=== PATIENT | male | born 1935 | race Caucasian/White ===

== ENCOUNTER 2020-01-19 09:57 | Outpatient (CLI) | payer MEDICARE ==
[2020-01-19 15:24] LABS: BASOPHILS # (AUTO) 0.1 10^3/uL (0.0-0.1); BASOPHILS % (AUTO) 0.6 %; EOSINOPHILS # (AUTO) 0.2 10^3/uL (0.0-0.7); EOSINOPHILS % (AUTO) 2.8 %; HGB - HEMOGLOBIN 13.6 g/dL (14.0-18.0); LYMPHOCYTES # (AUTO) 2.6 10^3/uL (1.5-3.5); LYMPHOCYTES % (AUTO) 33.5 %; MEAN CORPUSCULAR HEMOGLOBIN 30.6 pg (27.0-31.0); MEAN CORPUSCULAR HGB CONC 32.6 g/dL (32.0-36.0); MEAN CORPUSCULAR VOLUME 93.7 fL (80.0-94.0); MEAN PLATELET VOLUME 11.2 fL (7.4-11.4); MONOCYTES # (AUTO) 0.6 10^3/uL (0.0-1.0); MONOCYTES % (AUTO) 7.1 %; NEUTROPHILS # (AUTO) 4.4 10^3/uL (1.5-6.6); NEUTROPHILS % (AUTO) 55.5 %; PLT - PLATELET COUNT 206 10^3/uL (130-450); RED BLOOD COUNT 4.45 10^6/uL (4.70-6.10); RED CELL DISTRIBUTION WIDTH 14.7 % (12.0-15.0); WHITE BLOOD COUNT 7.9 x10^3/uL (4.8-10.8)
[2020-01-19 15:37] LABS: ALBUMIN 3.8 g/dL (3.2-5.5); ALBUMIN/GLOBULIN RATIO 1.1 (1.0-2.2); ALKALINE PHOSPHATASE 87 IU/L (42-121); ALT ALANINE AMINOTRANSFERASE 47 IU/L (10-60); AST ASPARTATE AMINOTRANSFERASE 35 IU/L (10-42); BILIRUBIN,TOTAL 0.9 mg/dL (0.2-1.0); BUN - BLOOD UREA NITROGEN 22 mg/dL (6-20); CALCIUM 9.4 mg/dL (8.5-10.3); CARBON DIOXIDE - CO2 28 mmol/L (21-32); CHLORIDE 105 mmol/L (101-111); CHOL/HDL RATIO 4.6 (<5.0); CHOLESTEROL 166 mg/dL; CREATININE 1.1 mg/dL (0.6-1.2); GLUCOSE 107 mg/dL (70-100); HDL CHOLESTEROL 36 mg/dL; LDL CHOLESTEROL,CALCULATED 105 mg/dL; LDL/HDL RATIO 2.9 (<3.6); SODIUM 138 mmol/L (135-145); TOTAL PROTEIN 7.2 g/dL (6.7-8.2); VLDL CHOLESTEROL 25 mg/dL
== END 2020-01-19 09:58 | disposition home or self-care (01) ==
LOC: LAB.S 09:57
PROVIDERS: ATTEND Registered Nurse
DX: R73.01 Impaired fasting glucose (principal); I10 Essential (primary) hypertension; D64.9 Anemia, unspecified; E78.5 Hyperlipidemia, unspecified; M10.9 Gout, unspecified
CPT/HCPCS: 36415; 80053; 80061; 83721; 84153; 84443; 85025

== ENCOUNTER 2020-10-31 10:02 | Outpatient (CLI) | payer MEDICARE ==
[2020-10-31 14:38] LABS: BASOPHILS # (AUTO) 0.1 10^3/uL (0.0-0.1); BASOPHILS % (AUTO) 0.6 %; EOSINOPHILS # (AUTO) 0.2 10^3/uL (0.0-0.7); EOSINOPHILS % (AUTO) 2.7 %; HCT - HEMATOCRIT 42.5 % (42.0-52.0); LYMPHOCYTES # (AUTO) 2.9 10^3/uL (1.5-3.5); LYMPHOCYTES % (AUTO) 35.5 %; MEAN CORPUSCULAR HEMOGLOBIN 31.1 pg (27.0-31.0); MEAN CORPUSCULAR HGB CONC 32.9 g/dL (32.0-36.0); MEAN CORPUSCULAR VOLUME 94.4 fL (80.0-94.0); MEAN PLATELET VOLUME 11.5 fL (7.4-11.4); MONOCYTES # (AUTO) 0.7 10^3/uL (0.0-1.0); NEUTROPHILS # (AUTO) 4.3 10^3/uL (1.5-6.6); NEUTROPHILS % (AUTO) 52.7 %; PLT - PLATELET COUNT 190 10^3/uL (130-450); WHITE BLOOD COUNT 8.2 x10^3/uL (4.8-10.8)
[2020-10-31 14:54] LABS: ALBUMIN 3.8 g/dL (3.2-5.5); ALBUMIN/GLOBULIN RATIO 1.2 (1.0-2.2); ALKALINE PHOSPHATASE 82 IU/L (42-121); ALT ALANINE AMINOTRANSFERASE 40 IU/L (10-60); AST ASPARTATE AMINOTRANSFERASE 35 IU/L (10-42); BILIRUBIN,TOTAL 0.9 mg/dL (0.2-1.0); BUN - BLOOD UREA NITROGEN 21 mg/dL (6-20); CARBON DIOXIDE - CO2 27 mmol/L (21-32); CHLORIDE 101 mmol/L (101-111); CHOL/HDL RATIO 4.2 (<5.0); CHOLESTEROL 186 mg/dL; CREATININE 1.3 mg/dL (0.6-1.2); GFR - MDRD 53 (>89); GLUCOSE 103 mg/dL (70-100); HDL CHOLESTEROL 44 mg/dL; LDL CHOLESTEROL,CALCULATED 109 mg/dL; LDL/HDL RATIO 2.5 (<3.6); POTASSIUM 4.1 mmol/L (3.5-5.0); SODIUM 137 mmol/L (135-145); TRIGLYCERIDES 163 mg/dL; VLDL CHOLESTEROL 33 mg/dL
[2020-10-31 15:04] LABS: THYROID STIMULATING HORMONE 1.7 uIU/mL (0.34-5.60)
== END 2020-10-31 10:03 | disposition home or self-care (01) ==
LOC: LAB.S 10:02
PROVIDERS: ATTEND Registered Nurse
DX: R79.89 Other specified abnormal findings of blood chemistry (principal); R73.01 Impaired fasting glucose; I10 Essential (primary) hypertension; D64.9 Anemia, unspecified; E78.5 Hyperlipidemia, unspecified; E88.81 Metabolic syndrome and other insulin resistance
CPT/HCPCS: 36415; 80053; 80061; 83721; 84443; 85025

== ENCOUNTER 2024-10-06 09:44 | Inpatient (IN) ==
[2024-10-06 10:41] LABS: BASOPHILS # (AUTO) 0.2 10^3/uL (0.0-0.1); BASOPHILS % (AUTO) 0.6 %; EOSINOPHILS # (AUTO) 2.8 10^3/uL (0.0-0.7); EOSINOPHILS % (AUTO) 10.9 %; HCT - HEMATOCRIT 40.7 % (42.0-52.0); HGB - HEMOGLOBIN 14.6 g/dL (14.0-18.0); LYMPHOCYTES # (AUTO) 3.3 10^3/uL (1.5-3.5); LYMPHOCYTES % (AUTO) 12.9 %; MEAN CORPUSCULAR HEMOGLOBIN 31.5 pg (27.0-31.0); MEAN CORPUSCULAR HGB CONC 35.9 g/dL (32.0-36.0); MEAN CORPUSCULAR VOLUME 87.7 fL (80.0-94.0); MEAN PLATELET VOLUME 10.2 fL (7.4-11.4); MONOCYTES # (AUTO) 1.6 10^3/uL (0.0-1.0); MONOCYTES % (AUTO) 6.3 %; NEUTROPHILS # (AUTO) 17.5 10^3/uL (1.5-6.6); NEUTROPHILS % (AUTO) 68.1 %; PLT - PLATELET COUNT 290 10^3/uL (130-450); RED BLOOD COUNT 4.64 10^6/uL (4.70-6.10); RED CELL DISTRIBUTION WIDTH 13.2 % (12.0-15.0); WHITE BLOOD COUNT 25.7 x10^3/uL (4.8-10.8)
[2024-10-06 10:44] LABS: SLIDE REVIEW? Indicated
[2024-10-06 11:01] LABS: PLATELET ESTIMATE, MANUAL NORMAL (130-450,000) (NORMAL); PLATELET MORPHOLOGY NORMAL APPEARANCE (NORMAL); RBC MORPHOLOGY (MULTIPLE) NORMAL APPEARANCE (NORMAL)
[2024-10-06 11:05] LABS: ALBUMIN 3.8 g/dL (3.2-5.5); ALBUMIN/GLOBULIN RATIO 1.5 (1.0-2.2); BILIRUBIN,TOTAL 0.7 mg/dL (0.2-1.0); CALCIUM 9.8 mg/dL (8.5-10.3); CREATININE 1.5 mg/dL (0.6-1.3); POTASSIUM 4.7 mmol/L (3.5-4.5); TOTAL PROTEIN 6.3 g/dL (6.4-8.9)
--- NOTE | 2024-10-06 11:41 | ED Physician Documentation ---
History of Present Illness Stated complaint Stated Complaint: SOA,CONFUSION Chief complaint Chief Complaint: Neuro Additonal information Additional information: 89-year-old male with history of hypertension, GERD, gout, type 2 diabetes presents emergency department with his son For concerns of altered mental status that has been going on for two days now. Son says that his father is normally very sharp in with it there is never been any altered mental status or confusion in the past. Last couple days son has been noting that his father has been repeating questions or having a hard time answering really simple questions that he normally does not have a hard time answering. He says that his father normally manages his own medications without any difficulty so he is unsure of his past medical history. Patient is alert and oriented to self and situation he is unable to tell me the president's name, the year, or what city we are in. Son says this is very abnormal for her father. He has had no recent falls or head injuries that the son is aware of although as son reports his father is usually very independent so he is not with him 10/03. Patient is experiencing some nausea with some abdominal pain and patient does report that he does feel quite confused and altered. Son reports that patient is normally very gaggy and coughs a lot with high amount of phlegm but over the last couple days there has been an excessive amount of phlegm and a lot of coughing with nausea and vomiting. [place] Coma Scale Assess Eye opening: Spontaneous Verbal response: Confused Motor response: Obeys Commands Total score: 14 Meds/Allgy Home Medications Ambulatory Orders Medication Instructions Recorded Confirmed allopurinol 100 mg tablet 100 mg PO DAILY 03/11/15 04/19/15 atenolol 100 mg tablet 100 mg PO DAILY 03/11/15 04/19/15 atorvastatin 20 mg tablet 20 mg PO DAILY 03/11/15 04/19/15 cholecalciferol (vitamin D3) 50 2,000 units PO BID 03/11/15 04/19/15 mcg (2,000 unit) capsule (Vitamin D3) metformin 500 mg tablet 500 mg PO DAILY 03/11/15 04/19/15 multivitamin 1 tab PO DAILY 03/11/15 04/19/15 oxycodone-acetaminophen 5 mg-325 1 tab PO DAILY 03/11/15 04/19/15 mg tablet (Percocet) aspirin,buffered (calcium 325 mg PO DAILY 04/06/15 04/19/15 carbonate-magnesium) 325 mg tablet flaxseed oil 1,000 mg capsule 1 tab PO DAILY 04/06/15 04/19/15 omeprazole 20 mg capsule,delayed 20 mg PO DAILY 04/06/15 04/19/15 release Allergies Allergies Allergy/AdvReac Type Severity Reaction Status Date / Time penicillin * (penicillin) AdvReac Severe Anaphylaxis Verified 10/06/24 10:15 naproxen sodium * (From AdvReac Intermediate Unknown Verified 10/06/24 10:15 Aleve) PFSH Active Problems All Active Problems (Updated 10/06/24 @ 21:05 by Pippa Delgado DNP) Pleural effusion (Acute) Cancer, metastatic to lung (Acute) Acute urinary retention (Acute) Confusion (Acute) Altered mental status (Acute) Acute hyponatremia (Acute) Social History Social History Smoking Status: Former smoker If you are a former smoker, when did you quit? (Date/Year): 1984 Number of Years Smoked: 26 How many cigarettes a day do you smoke? (20 cigarettes=1 Pk): 40 Do you dip or chew tobacco?: No Relationship: Home Mobility Equipment: Wheeled walker Do you feel safe in your home environment?: Yes Suffered physical, verbal, emotional, or financial abuse?: No History of Abuse: No Exam Constitutional normal general appearance, no apparent distress, average body habitus, limitations noted (altered mental status) and alert HENMT normocephalic and head/scalp atraumatic Eyes PERRL, EOMs intact bilaterally and no nystagmus Neck/C-Spine visual inspection normal Chest inspection of chest normal Respiratory breath sounds equal bilaterally, abnormal respiratory effort (increased work of breathing ) and wheezing noted (scattered wheezes) Cardiovascular normal heart rate noted and regular rhythm noted Gastrointestinal abdomen normal to inspection, abdomen soft to palpation, nontender to palpation and no masses Extremities normal to inspection Neurology no movement abnormality noted, no focal motor deficit noted, speech normal, coordination normal, no pronator drift noted and GCS calculation - Eye opening: Spontaneous Verbal response: Confused Motor response: Obeys Commands [place] Coma Scale total score: 14 Psychiatry orientation abnormal (disoriented to place) and (disoriented to time) Skin skin color normal and no rash Results Vitals Vitals: Vital Signs - 24 hr 10/06/24 10:10 10/06/24 11:47 10/06/24 13:08 Temperature 36.0 C L Temperature Source Temporal Artery Scan Pulse Rate 65 83 88 Respiratory Rate 20 18 17 Blood Pressure 127/91 H 171/74 H 160/78 H O2 Saturation 96 93 93 O2 Source Room air Room air Room air Pain Intensity 4 8 10/06/24 15:00 10/06/24 17:00 10/06/24 19:29 Temperature 36.1 C L Temperature Source Tympanic Pulse Rate 87 88 89 Respiratory Rate 18 18 22 Blood Pressure 166/82 H 168/88 H 125/62 O2 Saturation 95 96 96 O2 Source Room air Room air Room air Pain Intensity 0 0 0 Oxygen O2 Source Room air EKG (time done) 1225: EKG releavant findings:: EKG personally interpreted by author of this note. Relevant findings are: Rate: Rate (enter#) (84) Rhythm: NSR [place]: Normal Intervals: Other (Short [place] interval) QRS: QRS normal Ischemia: Normal ST segments Other comments: Other comments (Left ventricular hypertrophy, left atrial enlargement) Computer interpretation: Agree with computer Labs Labs: Laboratory Tests 10/06/24 10/06/24 10/06/24 10:31 13:05 14:06 WBC 25.7 H RBC 4.64 L Hgb 14.6 Hct 40.7 L MCV 87.7 MCH 31.5 H MCHC 35.9 RDW 13.2 Plt Count 290 MPV 10.2 Neut # (Auto) 17.5 H Lymph # (Auto) 3.3 [place] # (Auto) 1.6 H Eos # (Auto) 2.8 H Baso # (Auto) 0.2 H Absolute Nucleated RBC 0.00 Nucleated RBC % 0.0 Manual Slide Review Indicated WBC Morphology Platelet Estimate NORMAL (130-450,000) Platelet Morphology NORMAL APPEARANCE RBC Morph Micro Appear NORMAL APPEARANCE Sodium 120 L* 121 L Potassium 4.7 H Chloride 87 L Carbon Dioxide 23 Anion Gap 10.0 BUN 36 H Creatinine 1.5 H Estimated GFR (MDRD) 44 L Glucose 112 H Calcium 9.8 Total Bilirubin 0.7 AST 19 ALT 30 Alkaline Phosphatase 107 Total Protein 6.3 L Albumin 3.8 Globulin 2.5 Albumin/Globulin Ratio 1.5 Lipase 15 Procalcitonin Immunoas 0.43 Urine Color YELLOW Urine Clarity CLEAR Urine pH 6.0 Ur Specific [place] 1.020 Urine Protein TRACE Urine Glucose (UA) NEGATIVE Urine Ketones NEGATIVE Urine Occult Blood TRACE-LYSE Urine Nitrite NEGATIVE Urine Bilirubin NEGATIVE Urine Urobilinogen 0.2 (NORMAL) Ur Leukocyte Esterase NEGATIVE Ur Microscopic Review NOT INDICATED Urine Culture Comments NOT INDICATED Urine Sodium 31.4 10/06/24 10/06/24 16:27 19:58 WBC RBC Hgb Hct MCV MCH MCHC RDW Plt Count MPV Neut # (Auto) Lymph # (Auto) [place] # (Auto) Eos # (Auto) Baso # (Auto) Absolute Nucleated RBC Nucleated RBC % Manual Slide Review WBC Morphology Platelet Estimate Platelet Morphology RBC Morph Micro Appear Sodium 124 L 126 L Potassium Chloride Carbon Dioxide Anion Gap BUN Creatinine Estimated GFR (MDRD) Glucose Calcium Total Bilirubin AST ALT Alkaline Phosphatase Total Protein Albumin Globulin Albumin/Globulin Ratio Lipase Procalcitonin Immunoas Urine Color Urine Clarity Urine pH Ur Specific [place] Urine Protein Urine Glucose (UA) Urine Ketones Urine Occult Blood Urine Nitrite Urine Bilirubin Urine Urobilinogen Ur Leukocyte Esterase Ur Microscopic Review Urine Culture Comments Urine Sodium Rads (name of study) Head CT without: Relevant Findings:: Final report received and EMP independent interpretation of test Interpretation: IMPRESSION: No acute intracranial pathology. CT abdomen pelvis with out: Relevant Findings:: Final report received and EMP independent interpretation of test Interpretation: IMPRESSION: 1. There is a likely malignant process in the chest, involving the right hemithorax and mediastinum. Please refer to a separate chest CT report. 2. Findings include a large right pleural effusion and a right basilar masslike density which may potentially represent malignancy or atelectasis or consolidation. There is also hilar mass. 3. No acute findings identified in the abdomen and pelvis. 4. No evidence by noncontrast CT of metastatic disease in the abdomen and pelvis. 5. Prostate implant seeds with a diminutive prostate. Comment: Consider repeat imaging with contrast, on a nonemergent basis, further workup probable malignancy. CT chest without: Relevant Findings:: Final report received and EMP independent interpretation of test Interpretation: IMPRESSION: 1. Findings are highly suspicious for malignancy in the chest. This involves the right hemithorax and right hilar region and also involves suspicious mediastinal lymph nodes. 2. Also present is a large multilobulated pleural effusion, likely malignant. 3. Masslike density in the right lung base may represent neoplasm or atelectasis or consolidation. Comment: Consider potential thoracentesis followed by repeat chest CT with contrast. PD Medical Decision Making ED course Complexity details: reviewed old records, reviewed results, re-evaluated patient, considered differential, d/w patient and d/w family ED course: 89-year-old male presents emergency department for altered mental status and confusion. Differentials included but not limited to urinary tract infection, intracranial abnormality, hyponatremia, new onset dementia. Head CT was complete for further evaluation and does not reveal any acute intracranial hemorrhages or abnormalities. Labs completed for further evaluation patient appears to be quite hyponatremic NA 120. No history of hyponatremia in the past. CBC also reveals significant leukocytosis, WBC 25.7 mild hyperkalemia, 4.7 BUN elevated at 36, creatinine 1.5, GFR 44. Patient had quite a bit of chest congestion with rhonchi throughout bilateral lobes so chest CT without was complete for further evaluation and reveals highly suspicious for malignancy in the chest involving the right hemothorax and right hilar region also involving suspicious mediastinal lymph nodes. There is a large multilobulated pleural effusion that is likely malignant. There is also a masslike density in the right lung base which may represent neoplasm versus atelectasis or consolidation. Abdomen pelvis also complete which does not show any acute findings of the abdomen or pelvis. There is some prostate implanted seeds in the diminutive prostate patient does have a history of prostate cancer. Patient lives with his son who originally said that he does not believe that father would want any sort of intervention for his lung cancer and was originally fine with keeping him here at our hospital to help with correcting sodium levels and said that he had a high suspicion that once his father was mentating better they would likely transition patient to hospice. Patient has expressed multiple times that he never wants to in the hospital and would like to avoid hospitals at all cost. Patient's other son comes and says that he thinks that an oncology consult would be beneficial and helpful to help them navigate and make decisions on to whether they will pursue treatment or not for the father. Our hospitalist unfortunately believes that patient needs higher level of care g iven his hyponatremia we have no ICU beds available at our hospital and because of his new likely malignant lung cancer they believe that he would benefit from hospitalization elsewhere if they are not willing to pursue comfort measures only at this time aside from helping his sodium levels. Patient was given a total of 3 boluses of 100 mL 3% hypertonic normal saline. 70 level was checked frequently here in the emergency department and it went from 128 eventually to 126 over a 11-hour period. Patient unfortunately is more altered and more confused he has been given multiple doses of olanzapine Without any significant improvement of symptoms unfortunately patient ended up needing soft restraints. Because family is wanting to pursue an oncology evaluation we will need to pursue transferring patient elsewhere and so far patient has been rejected by [facility], [facility], all the [facility], Due to capacity. Will board patient here overnight until we can further pursue hospitalization elsewhere. Hernandez catheter was placed as patient was having acute urinary retention unfortunately after multiple attempts with the ER staff urology, Dr. Deven Alba was notified to come in and place a 14 [place] indwelling Hernandez catheter for acute urinary retention. Report given to oncoming physician who will further manage the patient as we work on transferring him to an outside hospital. Discharge Plan Discharge Patient Disposition: 02 Transfer Acute Care Hosp Condition: Fair Clinical Impression: Acute hyponatremia, Altered mental status, Confusion, Acute urinary retention, Cancer, metastatic to lung, Pleural effusion Stand Alone Forms: PCP List
[2024-10-06] MEDS: ONDANSETRON 4 MG/2 ML VIAL IVP STA (12:11)
[2024-10-06] MEDS: SODIUM CHLORIDE 3% HYPERTONIC 100 ML IV SCH ×3 (12:11→17:41)
[2024-10-06 13:13] LABS: BILIRUBIN,URINE NEGATIVE (NEGATIVE); GLUCOSE, URINE (UA) NEGATIVE (NEGATIVE); KETONES,URINE (UA) NEGATIVE (NEGATIVE); LEUKOCYTE ESTERASE, URINE NEGATIVE (NEGATIVE); NITRITE,URINE NEGATIVE (NEGATIVE); OCCULT BLOOD,URINE TRACE-LYSE (NEGATIVE); PROTEIN,URINE TRACE mg/dL (NEGATIVE); UROBILINOGEN,URINE 0.2 (NORMAL) E.U./dL (NORMAL)
[2024-10-06 13:15] LABS: CLARITY,URINE CLEAR (CLEAR)
--- NOTE | 2024-10-06 13:18 | CT Report ---
PROCEDURE: CT Abdomen/Pelvis WO INDICATIONS: abd [ain, nausea vomitting TECHNIQUE: A CT scan of the abdomen and pelvis was performed without the use of intravenous contrast. Images we re recorded and evaluated at appropriate window settings. Reformats: coronal and sagittal. For radiat ion dose reduction, the following was used: automated exposure control, adjustment of mA and/or kV ac cording to patient size. COMPARISON: CT chest without contrast from the same date. FINDINGS: Image quality: Diagnostic. Lower chest: When reviewing in conjunction with the CT chest, there is a right infrahilar mass or mal ignant adenopathy with associated pathologically enlarged right hilar adenopathy. In the lung base, t here is either dense atelectasis versus consolidation or basilar lung mass. There is a moderate multi loculated right pleural effusion. The left lung base is clear. Heart size is within normal limits.. Liver: No contour-deforming mass. Mild hepatomegaly. Gallbladder: Multiple tiny gallstones. Biliary tree: No intrahepatic or extrahepatic dilation, accounting for age. Spleen: No splenomegaly. Pancreas: No pancreatic ductal dilation. Adrenals: No adrenal nodule. Kidneys and ureters: No hydronephrosis. No contour-deforming mass. Stomach, bowel and peritoneum: No gastric or small bowel dilation. No abnormal wall thickening. No pa thologic free fluid. Diverticulosis without evidence of diverticulitis. Lymph nodes: No central or retroperitoneal adenopathy. Vessels: No infrarenal aortic aneurysm. Reproductive organs: Prostate implant seeds. Prostate is very small.. Bladder: Bladder wall thickness is normal, accounting for underdistention. No calcified bladder stone s. Pelvic lymph nodes: No adenopathy by size criteria. Bones: No aggressive osseous abnormality. Other: No significant ventral or inguinal hernia. IMPRESSION: 1. There is a likely malignant process in the chest, involving the right hemithorax and mediastinum. Please refer to a separate chest CT report. 2. Findings include a large right pleural effusion and a right basilar masslike density which may pot entially represent malignancy or atelectasis or consolidation. There is also hilar mass. 3. No acute findings identified in the abdomen and pelvis. 4. No evidence by noncontrast CT of metastatic disease in the abdomen and pelvis. 5. Prostate implant seeds with a diminutive prostate. Comment: Consider repeat imaging with contrast, on a nonemergent basis, further workup probable malig jada. Reviewed by: Rivera Haynes MD on 10/06/2024 1:16 PM PST Approved by: Rivera Haynes MD on 10/06/2024 1:16 PM PST Station ID: [id number]
--- NOTE | 2024-10-06 13:22 | CT Report ---
PROCEDURE: CT Chest WO INDICATIONS: cough, congestion TECHNIQUE: A CT scan of the chest was performed. Intravenous contrast media was not administered. Images were re corded and evaluated at appropriate window settings. Reformats: axial MIP of the chest, coronal and s agittal. For radiation dose reduction, the following was used: automated exposure control, adjustment of mA and/or kV according to patient size. COMPARISON: CT abdomen and pelvis from today. FINDINGS: Image quality: Diagnostic. Chest wall and lower neck: No thyroid nodule which requires sonographic follow up. No axillary or sup raclavicular adenopathy by size. Lungs and pleura: There is a large multiloculated right pleural effusion, potentially representing a malignant effusion. There is no contralateral mediastinal shift. There is right hilar/infrahilar mass or metastatic adenopathy. At least part of this process is enlarged lymph nodes. There is a masslike density in the right lung base which may either represent atelectasis or consolidation or lung mass. The left lung is clear. Mediastinum: Heart size is normal. No pericardial effusion. No large vessel abnormality. A right para tracheal lymph node is somewhat enlarged. There is subcarinal adenopathy. There is right hilar adenop athy and right infrahilar adenopathy or lung mass. Bones: No aggressive osseous abnormality. Upper Abdomen: Unremarkable. IMPRESSION: 1. Findings are highly suspicious for malignancy in the chest. This involves the right hemithorax and right hilar region and also involves suspicious mediastinal lymph nodes. 2. Also present is a large multilobulated pleural effusion, likely malignant. 3. Masslike density in the right lung base may represent neoplasm or atelectasis or consolidation. Comment: Consider potential thoracentesis followed by repeat chest CT with contrast. Reviewed by: Rivera Haynes MD on 10/06/2024 1:20 PM PST Approved by: Rivera Haynes MD on 10/06/2024 1:20 PM PST Station ID: [id number]
--- NOTE | 2024-10-06 13:22 | CT Report ---
PROCEDURE: CT Head WO INDICATIONS: AMS TECHNIQUE: Noncontrast 4.5 mm thick angled axial sections acquired from the foramen magnum to the vertex. For r adiation dose reduction, the following was used: automated exposure control, adjustment of mA and/or kV according to patient size. COMPARISON: None. FINDINGS: Image quality: Excellent. CSF spaces: Basal cisterns are patent. No extra-axial fluid collections. Ventricles are normal in size and shape. Brain: No midline shift. No intracranial masses or hemorrhage. Reddy-white matter interface is norm al. Intracranial carotid calcifications. Age-related volume loss and small vessel ischemic change. Skull and face: Calvarium and visualized facial bones are intact, without suspicious lesions. Sinuses: Visualized sinuses and mastoids are clear. IMPRESSION: No acute intracranial pathology. Reviewed by: Rivera Haynes MD on 10/06/2024 1:21 PM PST Approved by: Rivera Haynes MD on 10/06/2024 1:21 PM [facility] Station ID: [id number]
[2024-10-06] MEDS: OLANZapine ODT 5 MG TABLET TL STA ×4 (13:57→21:08)
[2024-10-06 14:33] LABS: PROCALCITONIN 0.43 ng/mL (<0.5)
[2024-10-06] MEDS ORDERED: SODIUM CHLORIDE 3% HYPERTONIC 0 ML IV SCH (18:00)
[2024-10-06] MEDS ORDERED: LIDOCAINE 2% URO-JET 5 ML SYRINGE UR ONE (18:04)
[2024-10-06] MEDS: LIDOCAINE 2% URO-JET 5 ML SYRINGE UR STA ×2 (18:26→18:49)
[2024-10-06] MEDS: LORazepam 2 MG/ML VIAL IVP STA (18:48)
--- NOTE | 2024-10-06 19:18 | CONSULTATION NOTE ---
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 Tenderness to palpation of suprapubic area Attempted catheter placement by ER multiple times failed. Urology consulted to aid with catheter placement At time of evaluation patient was lying in bed in the ER, arousable but not oriented PFSH Active Problems All Active Problems (Updated 10/06/24 @ 21:05 by Pippa Delgado DNP) Pleural effusion (Acute) Cancer, metastatic to lung (Acute) Acute urinary retention (Acute) Confusion (Acute) Altered mental status (Acute) Acute hyponatremia (Acute) Social History Social History Smoking Status: Former smoker If you are a former smoker, when did you quit? (Date/Year): 1984 Number of Years Smoked: 26 How many cigarettes a day do you smoke? (20 cigarettes=1 Pk): 40 Do you dip or chew tobacco?: No Relationship: Home Mobility Equipment: Wheeled walker Do you feel safe in your home environment?: Yes Suffered physical, verbal, emotional, or financial abuse?: No History of Abuse: No POLST Patient has POLST: No Meds/Allgy Home Medications Ambulatory Orders Medication Instructions Recorded Confirmed allopurinol 100 mg tablet 100 mg PO DAILY 03/11/15 04/19/15 atenolol 100 mg tablet 100 mg PO DAILY 03/11/15 04/19/15 atorvastatin 20 mg tablet 20 mg PO DAILY 03/11/15 04/19/15 cholecalciferol (vitamin D3) 50 2,000 units PO BID 03/11/15 04/19/15 mcg (2,000 unit) capsule (Vitamin D3) metformin 500 mg tablet 500 mg PO DAILY 03/11/15 04/19/15 multivitamin 1 tab PO DAILY 03/11/15 04/19/15 oxycodone-acetaminophen 5 mg-325 1 tab PO DAILY 03/11/15 04/19/15 mg tablet (Percocet) aspirin,buffered (calcium 325 mg PO DAILY 04/06/15 04/19/15 carbonate-magnesium) 325 mg tablet flaxseed oil 1,000 mg capsule 1 tab PO DAILY 04/06/15 04/19/15 omeprazole 20 mg capsule,delayed 20 mg PO DAILY 04/06/15 04/19/15 release Allergies Allergies Allergy/AdvReac Type Severity Reaction Status Date / Time penicillin * (penicillin) AdvReac Severe Anaphylaxis Verified 10/06/24 10:15 naproxen sodium * (From AdvReac Intermediate Unknown Verified 10/06/24 10:15 Aleve) Results Lab Results 10/07/24 07:08 10/07/24 07:08 Other Lab Results: Lab Results x24hrs 10/06/24 10/06/24 10/06/24 Range/Units 16:27 14:06 13:05 WBC (4.8-10.8) x10^3/uL RBC (4.70-6.10) 10^6/uL Hgb (14.0-18.0) g/dL Hct (42.0-52.0) % MCV (80.0-94.0) fL MCH (27.0-31.0) pg MCHC (32.0-36.0) g/dL RDW (12.0-15.0) % Plt Count (130-450) 10^3/uL MPV (7.4-11.4) fL Neut # (Auto) (1.5-6.6) 10^3/uL Lymph # (Auto) (1.5-3.5) 10^3/uL Whitfield # (Auto) (0.0-1.0) 10^3/uL Eos # (Auto) (0.0-0.7) 10^3/uL Baso # (Auto) (0.0-0.1) 10^3/uL Absolute Nucleated RBC x10^3/uL Nucleated RBC % /100WBC Manual Slide Review WBC Morphology (NORMAL) Platelet Estimate (NORMAL) Platelet Morphology (NORMAL) RBC Morph Micro Appear (NORMAL) Sodium 124 L 121 L (135-145) mmol/L Potassium (3.5-4.5) mmol/L Chloride (101-111) mmol/L Carbon Dioxide (21-32) mmol/L Anion Gap (6-13) BUN (6-20) mg/dL Creatinine (0.6-1.3) mg/dL Estimated GFR (MDRD) (>89) Glucose (74-104) mg/dL Calcium (8.5-10.3) mg/dL Total Bilirubin (0.2-1.0) mg/dL AST (10-42) IU/L ALT (10-60) IU/L Alkaline Phosphatase (42-121) IU/L Total Protein (6.4-8.9) g/dL Albumin (3.2-5.5) g/dL Globulin (2.1-4.2) g/dL Albumin/Globulin Ratio (1.0-2.2) Lipase (11-82) U/L Procalcitonin Immunoas 0.43 (<0.5) ng/mL Urine Color YELLOW Urine Clarity CLEAR (CLEAR) Urine pH 6.0 (5.0-7.5) PH Ur Specific [place] 1.020 (1.002-1.030) Urine Protein TRACE (NEGATIVE) mg/dL Urine Glucose (UA) NEGATIVE (NEGATIVE) mg/dL Urine Ketones NEGATIVE (NEGATIVE) mg/dL Urine Occult Blood TRACE-LYSE (NEGATIVE) Urine Nitrite NEGATIVE (NEGATIVE) Urine Bilirubin NEGATIVE (NEGATIVE) Urine Urobilinogen 0.2 (NORMAL) (NORMAL) E.U./dL Ur Leukocyte Esterase NEGATIVE (NEGATIVE) Ur Microscopic Review NOT INDICATED Urine Culture Comments NOT INDICATED Urine Sodium 31.4 mmol/L 10/06/24 Range/Units 10:31 WBC 25.7 H (4.8-10.8) x10^3/uL RBC 4.64 L (4.70-6.10) 10^6/uL Hgb 14.6 (14.0-18.0) g/dL Hct 40.7 L (42.0-52.0) % MCV 87.7 (80.0-94.0) fL MCH 31.5 H (27.0-31.0) pg MCHC 35.9 (32.0-36.0) g/dL RDW 13.2 (12.0-15.0) % Plt Count 290 (130-450) 10^3/uL MPV 10.2 (7.4-11.4) fL Neut # (Auto) 17.5 H (1.5-6.6) 10^3/uL Lymph # (Auto) 3.3 (1.5-3.5) 10^3/uL Whitfield # (Auto) 1.6 H (0.0-1.0) 10^3/uL Eos # (Auto) 2.8 H (0.0-0.7) 10^3/uL Baso # (Auto) 0.2 H (0.0-0.1) 10^3/uL Absolute Nucleated RBC 0.00 x10^3/uL Nucleated RBC % 0.0 /100WBC Manual Slide Review Indicated WBC Morphology (NORMAL) Platelet Estimate NORMAL (130-450,000) (NORMAL) Platelet Morphology NORMAL APPEARANCE (NORMAL) RBC Morph Micro Appear NORMAL APPEARANCE (NORMAL) Sodium 120 L* (135-145) mmol/L Potassium 4.7 H (3.5-4.5) mmol/L Chloride 87 L (101-111) mmol/L Carbon Dioxide 23 (21-32) mmol/L Anion Gap 10.0 (6-13) BUN 36 H (6-20) mg/dL Creatinine 1.5 H (0.6-1.3) mg/dL Estimated GFR (MDRD) 44 L (>89) Glucose 112 H (74-104) mg/dL Calcium 9.8 (8.5-10.3) mg/dL Total Bilirubin 0.7 (0.2-1.0) mg/dL AST 19 (10-42) IU/L ALT 30 (10-60) IU/L Alkaline Phosphatase 107 (42-121) IU/L Total Protein 6.3 L (6.4-8.9) g/dL Albumin 3.8 (3.2-5.5) g/dL Globulin 2.5 (2.1-4.2) g/dL Albumin/Globulin Ratio 1.5 (1.0-2.2) Lipase 15 (11-82) U/L Procalcitonin Immunoas (<0.5) ng/mL Urine Color Urine Clarity (CLEAR) Urine pH (5.0-7.5) PH Ur Specific [place] (1.002-1.030) Urine Protein (NEGATIVE) mg/dL Urine Glucose (UA) (NEGATIVE) mg/dL Urine Ketones (NEGATIVE) mg/dL Urine Occult Blood (NEGATIVE) Urine Nitrite (NEGATIVE) Urine Bilirubin (NEGATIVE) Urine Urobilinogen (NORMAL) E.U./dL Ur Leukocyte Esterase (NEGATIVE) Ur Microscopic Review Urine Culture Comments Urine Sodium mmol/L Conclusion and Plan Diagnosis Diagnosis: 89-year-old male with altered mental status, history of prostate cancer and brachytherapy, urinary retention. Plan Plan: 14 Prydeinig coud silicone Hernandez catheter placed Maintain Hernandez catheter for now Can be removed at discretion of primary team or can be left for comfort. Should be changed monthly Exam Exam NAD coughing obese uncirc phallus TTP suprapubically Catheter Insertion Time out Timeout (Clinics): Name and confirmed, Allergies verified, Procedure site and laterality confirmed, Consent form matches scheduled procedure, All team members agree to proceed and Consent form signed Procedure Urinary catheter insertion performed by: Deven Alba Proper hand hygiene, sterile equipment, and aseptic technique observed and maintained throughout procedure?: Yes Urinary Catheter Type: Indwelling Catheter size (Fr): 14 Collection Device: Drainage bag Lubrication: Yes Placement Success: Successful, complicated Patient tolerated procedure: Well Return Urine return (in ml): 600 Urine Color: Yellow Urine Quality: Clear Irrigation: No Specimen Sent: No Patient education Evaluation: Unable to comprehend
[2024-10-06] MEDS ORDERED: ACETAMINOPHEN 500 MG TABLET PO PRN (21:51)
[2024-10-06] MEDS ORDERED: ONDANSETRON 4 MG/2 ML VIAL IVP PRN (21:51)
[2024-10-07] MEDS: HALOPERIDOL 5 MG/ML VIAL IVP PRN (00:31)
[2024-10-07] MEDS: SODIUM CHLORIDE 1 GM TABLET PO SCH (06:17)
[2024-10-07] MEDS: atenoloL 25 MG TABLET PO STA (06:17)
[2024-10-07] MEDS: metFORMIN 500 MG TABLET PO STA (06:17)
[2024-10-07] MEDS: ATORVASTATIN 40 MG TABLET PO STA (06:17)
[2024-10-07 07:26] LABS: BASOPHILS # (AUTO) 0.2 10^3/uL (0.0-0.1); BASOPHILS % (AUTO) 0.7 %; EOSINOPHILS # (AUTO) 2.3 10^3/uL (0.0-0.7); EOSINOPHILS % (AUTO) 9.5 %; HCT - HEMATOCRIT 41.8 % (42.0-52.0); HGB - HEMOGLOBIN 14.8 g/dL (14.0-18.0); LYMPHOCYTES # (AUTO) 2.4 10^3/uL (1.5-3.5); LYMPHOCYTES % (AUTO) 9.8 %; MEAN CORPUSCULAR HEMOGLOBIN 31.4 pg (27.0-31.0); MEAN CORPUSCULAR HGB CONC 35.4 g/dL (32.0-36.0); MEAN CORPUSCULAR VOLUME 88.7 fL (80.0-94.0); MEAN PLATELET VOLUME 10.2 fL (7.4-11.4); MONOCYTES # (AUTO) 1.6 10^3/uL (0.0-1.0); MONOCYTES % (AUTO) 6.3 %; NEUTROPHILS # (AUTO) 17.8 10^3/uL (1.5-6.6); NEUTROPHILS % (AUTO) 72.2 %; PLT - PLATELET COUNT 230 10^3/uL (130-450); RED BLOOD COUNT 4.71 10^6/uL (4.70-6.10); WHITE BLOOD COUNT 24.6 x10^3/uL (4.8-10.8)
[2024-10-07 07:30] LABS: CALCIUM 9.8 mg/dL (8.5-10.3); CREATININE 1.2 mg/dL (0.6-1.3)
[2024-10-07] MEDS: PANTOPRAZOLE 40 MG TABLET PO SCH (07:42)
[2024-10-07 07:52] LABS: PLATELET ESTIMATE, MANUAL NORMAL (130-450,000) (NORMAL); PLATELET MORPHOLOGY NORMAL APPEARANCE (NORMAL); RBC MORPHOLOGY (MULTIPLE) NORMAL APPEARANCE (NORMAL); SLIDE REVIEW? Indicated
[2024-10-07] MEDS: ENOXAPARIN 40 MG/0.4 ML SYRINGE SUBQ SCH (08:45)
--- NOTE | 2024-10-07 09:55 | ED Physician Documentation ---
ED Addendum Addendum Addendum: The patient was signed out to me at change of shift, pending transfer to inpatient setting for altered mental status, hyponatremia, and suspected new diagnosis of cancer. The patient had presented with increased confusion over the last few days which was a departure from his usual. Workup had revealed a new lung mass with some adenopathy. CT of the head and abdomen were unremarkable. The patient was also found to be hyponatremic at 120 initially but with treatment, had stabilized around 127 at the time of signout. Transfer had been attempted, due to our not having beds available in our ICU, which was where the patient would need to go for the hyponatremia. No beds were available at any facilities whatsoever. The patient continued to be delirious in the emergency department but his sodium had improved. I discussed the case with Dr. Lucas of oncology and he stated that the patient should have an MRI of the brain as well as if possible, and IR guided biopsy of his lung mass. If not possible as an inpatient, he would need to have this done as an outpatient before a treatment plan could be decided upon. The family at this point is divided as to whether the patient should just have comfort care or whether he should have options explored with oncology. As such, and because the likelihood of being able to transfer is extremely low, I discussed the case with Dr. Ramos who is our on-call hospitalist, and we have determined that the patient can be admitted he re for his delirium, hyponatremia, and MRI. We will see if the patient can have the biopsy done as an inpatient and if not, we will consult the field care coordinator for oncology to help navigate further testing as an outpatient if the family so desires. Plan will also be to consult palliative care as oncology has recommended this as well. Final impression: 1. Hyponatremia 2. Altered mental status/delirium 3. Lung mass Disposition: Admit to the hospital in serious but stable condition. Discharge Plan Discharge Patient Disposition: [facility] DC/Xfer Condition: Fair Clinical Impression: Acute hyponatremia, Altered mental status, Confusion, Acute urinary retention, Cancer, metastatic to lung, Pleural effusion Prescriptions: No Action metformin 500 MG tablet 500 mg PO DAILY atorvastatin 20 MG tablet 20 mg PO DAILY atenolol 100 MG tablet 100 mg PO DAILY allopurinol 100 MG tablet 100 mg PO DAILY multivitamin 1 EACH capsule 1 tab PO DAILY cholecalciferol (vitamin D3) [Vitamin D3] 2,000 UNIT capsule 2,000 units PO BID oxycodone-acetaminophen [Percocet] 1 EACH tablet 1 tab PO DAILY aspirin,buffd-calcium carb-mag 325 MG tablet 325 mg PO DAILY flaxseed oil 1,000 MG capsule 1 tab PO DAILY omeprazole 20 MG capsule,delayed release(DR/EC) 20 mg PO DAILY Print Language: Albanian
--- NOTE | 2024-10-07 13:21 | HISTORY & PHYSICAL EXAMINATION ---
<Statement entered by Niranjan Ramos MD - 10/07/24 17:50> I have seen the patient and examined independently as well as reviewed the patient chart and data. The patient admitted for acute metabolic encephalopathy in the setting of new diagnosis of metastatic disease as per CT scan. As noted in H&P, plan is to place patient in MedSurg for normalization of sodium, continue workup with brain MRI with and without contrast to rule out possible brain mets along with goals of care conversations. Chief Complaint Chief Complaint Chief Complaint: altered mental status History of Present Illness Admitted From Admitted From:: Emergency department History Obtained From Records Reviewed: Emergency room note 10/07, 10/06 History of Present Illness HPI Comment/Other: Patient is an 89 year old man with hx of GERD, prostate cancer, DMT2, HTN, gout that presents for altered mental status. His son is the primary historian due to patient altered mental status. Five days ago mentation changed, patient appeared more anxious, stopped normal activities, paced around house. 3 days ago patient had evident sharp decrease in mentation. Associated symptoms include nausea, headache, confusion, productive cough. At baseline, patient has no mental or mobility deficits and is independent. Denies change in gait, muscle weakness, fatigue, falls. Patient has at least 40 pack year history, has two drinks of hard liquor daily. Patient admitted to ER yesterday. Head CT completed and was negative for acute process. Sodium was 120 on admission, Patient was given a total of 3 boluses of 100 mL 3% hypertonic normal saline, sodium improved to 127. Patient combative in ER, was given olanzapine and put in soft restraints. Chest CT performed due to patient productive cough, indicated lesions highly suspicious of cancer with potential lymph node involvement and pleural effusion. CT A&P negative. Arredondo placed by urologist in ER due to reported acute urinary retention. ER also discussed patient with oncologist Dr. Lucas, who recommended magnus and MRI and IR guided lung lesion biopsy. Meds/Allgy Home Medications Ambulatory Orders Medication Instructions Recorded Confirmed allopurinol 100 mg tablet 200 mg PO DAILY 03/11/15 10/07/24 atenolol 100 mg tablet 100 mg PO DAILY 03/11/15 10/07/24 atorvastatin 20 mg tablet 20 mg PO DAILY 03/11/15 10/07/24 cholecalciferol (vitamin D3) 50 2,000 units PO BID 03/11/15 10/07/24 mcg (2,000 unit) capsule (Vitamin D3) multivitamin 1 tab PO DAILY 03/11/15 10/07/24 amlodipine 10 mg tablet 10 mg PO DAILY 10/07/24 10/07/24 pantoprazole 40 mg tablet,delayed 40 mg PO DAILY 10/07/24 10/07/24 release triamterene 37.5 1 tab PO DAILY 10/07/24 10/07/24 mg-hydrochlorothiazide 25 mg tablet Allergies Allergies Allergy/AdvReac Type Severity Reaction Status Date / Time penicillin * (penicillin) AdvReac Severe Anaphylaxis Verified 10/06/24 10:15 naproxen sodium * (From AdvReac Intermediate Unknown Verified 10/06/24 10:15 Aleve) PFSH Active Problems All Active Problems (Updated 10/07/24 @ 15:32 by Elise Walter) Metastasis of unknown primary (Acute) Pleural effusion (Acute) Cancer, metastatic to lung (Acute) Acute urinary retention (Acute) Confusion (Acute) Altered mental status (Acute) Acute hyponatremia (Acute) Social History Social History (Updated 10/07/24 @ 12:32 by Shawna Harding RN) Smoking Status: Former smoker If you are a former smoker, when did you quit? (Date/Year): 20yrs ago Number of Years Smoked: 30 How many cigarettes a day do you smoke? (20 cigarettes=1 Pk): 40 Do you dip or chew tobacco?: No Do you vape?: No Patient requests smoking cessation consult: No Initiate information on smoking cessation: No Living arrangement: At home Marital Status: Living Condition: With family Support Person: Yes Relationship: Child Living Situation Details: lives with both sons and their wives and his grandchildren Physical Activity: Walking Level: Independent Home Mobility Equipment: Wheeled walker Physical - Functional Details: family reports he "holds onto furniture, gandhi and people to walk" Do you feel safe in your home environment?: Yes Suffered physical, verbal, emotional, or financial abuse?: No History of Abuse: No ETOH Use: Liquor Frequency: Daily Number of Amount/day: 2 (vodka ) Substance Use: denies use Are you sexually active?: No Occupation: retired Retired: Yes Are you following a diet prescribed by a doctor: No Are you following a special diet: No POLST Patient has POLST: Yes POLST Status: Full Code Review of Systems Constitutional Reports: Fatigue, Weakness and Weight loss Respiratory Denies: Cough or Sputum production Gastrointestinal Denies: Nausea or Poor appetite Neurological Reports: Abnormal gait and Lack of coordination; Denies: Headache, Confusion or Behavioral changes Endocrine Reports: Fatigue Exam Constitutional Patient is alert [facility] normocephalic, head/scalp atraumatic, hearing grossly normal bilaterally and external ears normal oral mucous membranes dry Eyes EOMs intact bilaterally (mild delay when assessing EOMs), conjunctivae normal and no scleral icterus Difficult to examine due to patient somnolence Neck/C-Spine visual inspection normal Chest inspection of chest normal and palpation of chest normal Respiratory breath sounds equal bilaterally, normal respiratory effort and clear to auscultation bilaterally Cardiovascular normal heart rate noted, regular rhythm noted and no JVD Gastrointestinal abdomen normal to inspection, abdomen soft to palpation, nontender to palpation, nondistended and no ascites Extremities normal to inspection Neurology acetaldehyde converter operator II-XII intact and no focal motor deficit noted Psychiatry orientation abnormal (disoriented to place) and (disoriented to time) Patient is confused on exam. He is able to follow commands with some delay, but he is unable to answer questions. Patient oriented to person, but could not tell me where he was or the year. Skin mildly decreased skin turgor Conclusion/Plan Problem List (1) Altered mental status: Plan: -Significant altered mental status on exam. No focal neurological deficits, decreased likelihood of TIA or CVA. - CT chest highly suspicious for malignancy, read shows suspicious mediastinal lymph nodes, potential neoplasm in right lung base, right hilar/infrahilar mass or metastatic adenopathy. -Differential for AMS includes hyponatremia causing confusion or brain metastasis. In the ER, patient was given a total of 3 boluses of 100 mL 3% hypertonic normal saline and sodium improved from 120 to 127. -Patient also drinks 1-2 drinks of hard liquor daily, detoxing from alcohol may be contributing to confusion. Plan: Brain MRI pending to rule out metastasis. Continue normal saline, BMP q24 to monitor electrolytes. Will continue to monitor patient for signs of alcohol withdrawal and treat accordingly (2) Acute hyponatremia: Plan: -Patient sodium improved from 120 to 127 in ER. -Patient appears hypovolemic on exam, because of this CHF and liver failure are less likely causes. -Urine osmolality and Urinalysis was WNL. -Differential includes hypovolemic hyponatremia from poor input, SIADH, brain lesion affecting hormones controlling sodium levels, adrenal insufficiency. -Plan: Will continue normal saline to normalize sodium, q24 hour BMP to monitor sodium. Input currently 680mL less than output. (3) Metastasis of unknown primary: Plan: -Chest CT highly suspicious for malignancy. Read included pleural effusion, suspicious mediastinal lymph nodes, Masslike density in the right lung base, right hilar/infrahilar mass or metastatic adenopathy. -Per ER note from 10/07, ER provider discussed case with Dr. Lucas of oncology who recommended MRI of the brain and IR guided biopsy of his lung mass. -The family would like to wait to decide to see if patient mentation improves in order to get patient input on which measures to take and level of treatment preferred. -Plan: brain MRI pending, imaging will determine treatment plan (4) Pleural effusion: Plan: large multilobulated pleural effusion, likely malignant per radiologist, viewed on CT chest from 10/06 in addition to other findings suspicious of malignancy. Patient is having productive cough, but oxygen saturation is 98% on room air, patient is not short of breath or in pain. Plan: No need for treatment at this time. (5) Acute urinary retention: Plan: Per ER note 10/06/24, patient was having acute urinary retention and urologist placed 14 Setswana indwelling arredondo catheter. As mentation improves, will consider trialling removal. Plan Patient is full code, son is making medical decisions while patient is altered. POLST completed Lab Results Lab results reviewed: Yes 10/07/24 07:08 10/07/24 07:08 Diagnostic Imaging Results Diagnostic Imaging Results: positive Final report reviewed
[2024-10-07] MEDS ORDERED: SODIUM CHLORIDE FLUSH 0.9% 10 ML SYRINGE IVP PRN (14:57)
[2024-10-07] MEDS ORDERED: ONDANSETRON 4 MG/2 ML VIAL IVP PRN (15:03)
[2024-10-07] MEDS ORDERED: HYDROcod/ACETAM 5/325 MG TABLET PO PRN (15:03)
[2024-10-07] MEDS ORDERED: ACETAMINOPHEN 325 MG TABLET PO PRN ×2 (15:03→16:35)
--- NOTE | 2024-10-07 15:35 | PHARMACY PROGRESS NOTE ---
Best Possible Medication History Admit Date and Time: 10/07/24 [id number] Home Medications Medication Instructions Recorded Confirmed Type allopurinol 100 mg tablet 200 mg PO DAILY 03/11/15 10/07/24 History atenolol 100 mg tablet 100 mg PO DAILY 03/11/15 10/07/24 History atorvastatin 20 mg tablet 20 mg PO DAILY 03/11/15 10/07/24 History cholecalciferol (vitamin D3) 50 2,000 units PO BID 03/11/15 10/07/24 History mcg (2,000 unit) capsule (Vitamin D3) multivitamin 1 tab PO DAILY 03/11/15 10/07/24 History amlodipine 10 mg tablet 10 mg PO DAILY 10/07/24 10/07/24 History pantoprazole 40 mg tablet,delayed 40 mg PO DAILY 10/07/24 10/07/24 History release triamterene 37.5 1 tab PO DAILY 10/07/24 10/07/24 History mg-hydrochlorothiazide 25 mg tablet Processed by: Pharmacy Medications reviewed in ED?: Yes Medication History completed: Yes Patient Interview: Completed Secondary Source(s): Insurance records [facility] Statement: As the person ultimately responsible for medication therapy, providers are able to order a medication from an existing home medication list in [facility] via the "Reconcile Routine" prior to Confirmation of that medication by product support sales representative. Such practice is discouraged except when the physician, in their clinical judgment, deems that a medical need exists for a medication without regard to previous use.
[2024-10-07] MEDS: SODIUM CHLORIDE 0.9% 1,000 ML IV SCH (16:41)
[2024-10-07] MEDS: SODIUM CHLORIDE FLUSH 0.9% 10 ML SYRINGE IVP SCH (16:44)
[2024-10-07] MEDS: MIN OIL/DIMETHICON/COCONUT OIL 92 GM TUBE TOP PRN (20:30)
[2024-10-08] MEDS: HALOPERIDOL 5 MG/ML VIAL IVP PRN ×2 (01:59→11:53)
--- NOTE | 2024-10-08 04:05 | PROVIDER PROGRESS NOTE ---
Sheet Pile Hammer Operator Note Sheet Pile Hammer Operator Note Sheet Pile Hammer Operator Note: Notified by nurse regarding the following: "patient admit dx: AMS, hyponatremia, Juan. lung CA w/ mass, possible mets to brain. WBC 24. perused entire chart: during this hospitalization it does not appear that patient has received any abx. could not locate any info in chart for why they woiuldnt have started any. read that the family will more than likely be pursuing hospice care eventually. FYI. how would you like to proceed?" Reviewed chart, patient has leukocytosis and per nurse has been hypothermic. patient triggered sepsis alert per nurse. will obtain blood cultures. he has pleural effusion, suspected malignant per notes, can't exclude infection. Will initiate empiric antibiotic regimen. continue to monitor.
[2024-10-08] MEDS: VANCOMYCIN INJ 2 GM in SODIUM CHLORIDE 0.9% 500 ML IV SCH (05:55)
[2024-10-08] MEDS ORDERED: levoFLOXacin 750 MG/150 ML 750 MG/150 ML BAG IV SCH (07:00)
[2024-10-08] MEDS: levoFLOXacin 750 MG/150 ML 750 MG/150 ML BAG IV SCH ×2 (07:36→11:36)
[2024-10-08] MEDS: metroNIDAZOLE 500 MG/100 ML 500 MG/100 ML BAG IV SCH ×3 (07:36→14:55)
[2024-10-08] MEDS ORDERED: metroNIDAZOLE 500 MG/100 ML 500 MG/100 ML BAG IV SCH (08:00)
[2024-10-08 08:35] LABS: CALCIUM 9.3 mg/dL (8.5-10.3); CREATININE 1.3 mg/dL (0.6-1.3); POTASSIUM 3.8 mmol/L (3.5-4.5)
[2024-10-08 08:44] LABS: PROCALCITONIN 0.54 ng/mL (<0.5)
[2024-10-08] MEDS ORDERED: GADOTERATE MEGLUMINE 10 MMOL/20 ML VIAL ONE (11:58)
[2024-10-08] MEDS ORDERED: GADOTERATE MEGLUMINE 5 MMOL/10 ML VIAL ONE (11:58)
[2024-10-08] MEDS: GADOTERATE MEGLUMINE 10 MMOL/20 ML VIAL IVP ONE (12:45)
--- NOTE | 2024-10-08 13:44 | MRI Report ---
PROCEDURE: MRI Brain W/WO INDICATIONS: AMS, new Lung CA, r/o brain mets CONTRAST: Clariscan 20.6 ml TECHNIQUE: Noncontrast axial T1 , axial T2 fast spin echo, sagittal and axial FLAIR, axial gradient echo, axial diffusion and ADC through the brain. After the administration of contrast, axial and coronal T1 spin echo with fat saturation through the brain. COMPARISON: CT head 10/06/2024 FINDINGS: Image quality: Motion degraded exam with limited sequences. CSF spaces: Basal cisterns are patent. No extra-axial fluid collections. Ventricles are normal in size and shape. Brain: No midline shift. No intracranial bleeds or masses. No abnormal intracranial enhancement. There is cerebral volume loss for age. There is periventricular white matter chronic small vessel is chemic change. The brainstem appears normal. Diffusion-weighted images demonstrate no acute ischemi c insults. No chronic ischemic insults. Normal intravascular flow voids are present. Skull and face: Calvarial marrow is normal in signal. Orbits appear normal. Sinuses: Sinuses and mastoids appear clear. IMPRESSION: 1.Motion exam with limited sequences. 2.No evidence of intracranial metastatic disease. 3.Age-related global volume loss and chronic microvascular ischemic changes. Reviewed by: Aleksandr Cerda MD on 10/08/2024 1:43 PM PST Approved by: Aleksandr Cerda MD on 10/08/2024 1:43 PM PST Station ID: [id number]
--- NOTE | 2024-10-08 14:57 | PROVIDER PROGRESS NOTE ---
Assessment/Plan Problem List (1) Altered mental status: Assessment/Plan: Patient still significantly altered, oriented x 1. MRI negative for lesion, imaging quality is not optimal due to patient agitation. Will continue patient on haldol 3mg q4, (2) Acute hyponatremia: (3) Metastasis of unknown primary: (4) Pleural effusion: (5) Acute urinary retention: Current Meds Current Meds: Current Medications Generic Name Dose Route Start Last Admin Trade Name Freq PRN Reason Stop Dose Admin Acetaminophen 650 mg 10/07/24 15:03 Acetaminophen 325 Mg Tablet PO Q4HR PRN Pain 1 to 4, or Fever Hydrocodone Bitart/Acetaminophen 1 tab 10/07/24 15:03 Hydrocod/Acetam 5/325 Mg Tablet PO Q4HR PRN Pain 5 to 7 Enoxaparin Sodium 40 mg 10/07/24 09:00 10/08/24 08:54 Enoxaparin 40 Mg/0.4 Ml Syringe SUBQ Not Given DAILY SHALINI Gabapentin 300 mg 10/08/24 15:00 Gabapentin 300 Mg Capsule PO TID SHALINI Haloperidol 3 mg 10/08/24 11:29 10/08/24 11:53 Haloperidol 5 Mg/Ml Vial IVP 3 mg Q4H PRN Administration Agitation Sodium Chloride 1,000 mls @ 100 mls/hr 10/07/24 15:00 10/08/24 14:24 Normal Saline 0.9% IV 100 mls/hr .Q10H SHALINI Administration Vancomycin HCl 1.5 gm/ Sodium 500 mls @ 250 mls/hr 10/09/24 05:00 Chloride IV Q24H SHALINI Levofloxacin 750 mg in 150 mls @ 100 mls/hr 10/08/24 11:00 10/08/24 13:10 Levaquin 750 Mg/150 Ml IV Infused Q24H SHALINI Infusion Metronidazole 500 mg in 100 mls @ 100 mls/hr 10/08/24 14:00 10/08/24 14:24 Flagyl 500 Mg/100 Ml IV 100 mls/hr Q8H SHALINI Administration Mineral Oil 1 applic 10/07/24 15:30 10/07/24 20:30 Min Oil/Dimethicon/Coconut Oil 92 Gm Tube TOP 1 applic PRN PRN Administration Skin Care Ondansetron HCl 4 mg 10/07/24 15:03 Ondansetron 4 Mg/2 Ml Vial IVP Q6HR PRN Nausea / Vomiting Pantoprazole Sodium 40 mg 10/07/24 07:00 10/08/24 05:56 Pantoprazole 40 Mg Tablet PO Not Given QDAC [facility] Sodium Chloride 1 gm 10/06/24 23:00 10/08/24 14:28 Sodium Chloride 1 Gm Tablet PO Not Given QID SHALINI Sodium Chloride 10 ml 10/07/24 14:57 Sodium Chloride Flush 0.9% 10 Ml Syringe IVP PRN PRN NEEDED PER PROVIDER ORDERS Sodium Chloride 10 ml 10/07/24 17:00 10/08/24 08:42 Sodium Chloride Flush 0.9% 10 Ml Syringe IVP 10 ml 0100,0900,1700 [facility] Administration Lab Result 10/07/24 07:08 10/08/24 08:14 Objective Vital Signs: Vital Signs - 24 hr 10/07/24 15:04 10/07/24 21:00 10/08/24 00:00 Temperature 36.4 C L 36.4 C L Temperature Source Temporal Artery Scan Temporal Artery Scan Pulse Rate [Brachial] 95 110 H Pulse Rate [Monitoring electrodes] Respiratory Rate 20 24 Blood Pressure [Right Brachial artery] 143/58 H 105/65 O2 Saturation 93 95 O2 Source Room air Room air Sedation scale 0-Fully awake 0-Fully awake Pain Intensity 0 Pain Intensity [Left Knee] 0 10/08/24 00:30 10/08/24 04:00 10/08/24 07:28 Temperature 36.5 C 36.5 C Temperature Source Temporal Artery Scan Temporal Artery Scan Pulse Rate [Brachial] 115 H Pulse Rate [Monitoring electrodes] 106 H Respiratory Rate 25 H 28 H Blood Pressure [Right Brachial artery] 163/84 H 105/59 L O2 Saturation 95 94 O2 Source Room air Room air Sedation scale 0-Fully awake 0-Fully awake Pain Intensity Pain Intensity [Left Knee] 0 Oxygen O2 Source Room air I&O (Last 24 Hrs): Intake and Output Totals x24h 10/06/24 10/07/24 10/08/24 23:59 23:59 23:59 Intake Total 300 / 300 200 / 200 2870 / 2870 Output Total 900 / 900 300 / 300 370 / 370 Balance -600 / -600 -100 / -100 2500 / 2500 Results Results: Laboratory Results WBC 24.6 x10^3/uL (4.8-10.8) H 10/07/24 07:08 RBC 4.71 10^6/uL (4.70-6.10) 10/07/24 07:08 Hgb 14.8 g/dL (14.0-18.0) 10/07/24 07:08 Hct 41.8 % (42.0-52.0) L 10/07/24 07:08 MCV 88.7 fL (80.0-94.0) 10/07/24 07:08 MCH 31.4 pg (27.0-31.0) H 10/07/24 07:08 MCHC 35.4 g/dL (32.0-36.0) 10/07/24 07:08 RDW 13.0 % (12.0-15.0) 10/07/24 07:08 Plt Count 230 10^3/uL (130-450) 10/07/24 07:08 MPV 10.2 fL (7.4-11.4) 10/07/24 07:08 Neut # (Auto) 17.8 10^3/uL (1.5-6.6) H 10/07/24 07:08 Lymph # (Auto) 2.4 10^3/uL (1.5-3.5) 10/07/24 07:08 [place] # (Auto) 1.6 10^3/uL (0.0-1.0) H 10/07/24 07:08 Eos # (Auto) 2.3 10^3/uL (0.0-0.7) H 10/07/24 07:08 Baso # (Auto) 0.2 10^3/uL (0.0-0.1) H 10/07/24 07:08 Absolute Nucleated RBC 0.00 x10^3/uL 10/07/24 07:08 Nucleated RBC % 0.0 /100WBC 10/07/24 07:08 Manual Slide Review Indicated 10/07/24 07:08 WBC Morphology (NORMAL) 10/06/24 10:31 Platelet Estimate NORMAL (130-450,000) (NORMAL) 10/07/24 07:08 Platelet Morphology NORMAL APPEARANCE (NORMAL) 10/07/24 07:08 RBC Morph Micro Appear NORMAL APPEARANCE (NORMAL) 10/07/24 07:08 Sodium 132 mmol/L (135-145) L 10/08/24 08:14 Potassium 3.8 mmol/L (3.5-4.5) 10/08/24 08:14 Chloride 103 mmol/L (101-111) 10/08/24 08:14 Carbon Dioxide 20 mmol/L (21-32) L 10/08/24 08:14 Anion Gap 9.0 (6-13) 10/08/24 08:14 BUN 32 mg/dL (6-20) H 10/08/24 08:14 Creatinine 1.3 mg/dL (0.6-1.3) 10/08/24 08:14 Estimated GFR (MDRD) 52 (>89) L 10/08/24 08:14 Glucose 121 mg/dL (74-104) H 10/08/24 08:14 Calcium 9.3 mg/dL (8.5-10.3) 10/08/24 08:14 Total Bilirubin 0.7 mg/dL (0.2-1.0) 10/06/24 10:31 AST 19 IU/L (10-42) 10/06/24 10:31 ALT 30 IU/L (10-60) 10/06/24 10:31 Alkaline Phosphatase 107 IU/L (42-121) 10/06/24 10:31 Total Protein 6.3 g/dL (6.4-8.9) L 10/06/24 10:31 Albumin 3.8 g/dL (3.2-5.5) 10/06/24 10:31 Globulin 2.5 g/dL (2.1-4.2) 10/06/24 10:31 Albumin/Globulin Ratio 1.5 (1.0-2.2) 10/06/24 10:31 Lipase 15 U/L (11-82) 10/06/24 10:31 Procalcitonin Immunoas 0.54 ng/mL (<0.5) H 10/08/24 08:14 Urine Color YELLOW 10/06/24 13:05 Urine Clarity CLEAR (CLEAR) 10/06/24 13:05 Urine pH 6.0 PH (5.0-7.5) 10/06/24 13:05 Ur Specific [place] 1.020 (1.002-1.030) 10/06/24 13:05 Urine Protein TRACE mg/dL (NEGATIVE) 10/06/24 13:05 Urine Glucose (UA) NEGATIVE mg/dL (NEGATIVE) 10/06/24 13:05 Urine Ketones NEGATIVE mg/dL (NEGATIVE) 10/06/24 13:05 Urine Occult Blood TRACE-LYSE (NEGATIVE) 10/06/24 13:05 Urine Nitrite NEGATIVE (NEGATIVE) 10/06/24 13:05 Urine Bilirubin NEGATIVE (NEGATIVE) 10/06/24 13:05 Urine Urobilinogen 0.2 (NORMAL) E.U./dL (NORMAL) 10/06/24 13:05 Ur Leukocyte Esterase NEGATIVE (NEGATIVE) 10/06/24 13:05 Ur Microscopic Review NOT INDICATED 10/06/24 13:05 Urine Culture Comments NOT INDICATED 10/06/24 13:05 Urine Osmolality 506 mOsmol/kg (.) 10/06/24 13:05 Urine Sodium 31.4 mmol/L 10/06/24 13:05 Procedures Procedures: Procedures EXC LES SOFT TISSUE NEC (04/19/15) OTH ARTHROTOMY-KNEE (04/06/15) OTHER SKIN & SUBQ I D (03/28/15) Current Medications Current Medications Current Medications: Current Medications Generic Name Dose Route Start Last Admin Trade Name Freq PRN Reason Stop Dose Admin Acetaminophen 650 mg 10/07/24 15:03 Acetaminophen 325 Mg Tablet PO Q4HR PRN Pain 1 to 4, or Fever Hydrocodone Bitart/Acetaminophen 1 tab 10/07/24 15:03 Hydrocod/Acetam 5/325 Mg Tablet PO Q4HR PRN Pain 5 to 7 Enoxaparin Sodium 40 mg 10/07/24 09:00 10/08/24 08:54 Enoxaparin 40 Mg/0.4 Ml Syringe SUBQ Not Given DAILY SHALINI Gabapentin 300 mg 10/08/24 15:00 Gabapentin 300 Mg Capsule PO TID SHALINI Haloperidol 3 mg 10/08/24 11:29 10/08/24 11:53 Haloperidol 5 Mg/Ml Vial IVP 3 mg Q4H PRN Administration Agitation Sodium Chloride 1,000 mls @ 100 mls/hr 10/07/24 15:00 10/08/24 14:24 Normal Saline 0.9% IV 100 mls/hr .Q10H SHALINI Administration Vancomycin HCl 1.5 gm/ Sodium 500 mls @ 250 mls/hr 10/09/24 05:00 Chloride IV Q24H SHALINI Levofloxacin 750 mg in 150 mls @ 100 mls/hr 10/08/24 11:00 10/08/24 13:10 Levaquin 750 Mg/150 Ml IV Infused Q24H SHALINI Infusion Metronidazole 500 mg in 100 mls @ 100 mls/hr 10/08/24 14:00 10/08/24 14:24 Flagyl 500 Mg/100 Ml IV 100 mls/hr Q8H SHALINI Administration Mineral Oil 1 applic 10/07/24 15:30 10/07/24 20:30 Min Oil/Dimethicon/Coconut Oil 92 Gm Tube TOP 1 applic PRN PRN Administration Skin Care Ondansetron HCl 4 mg 10/07/24 15:03 Ondansetron 4 Mg/2 Ml Vial IVP Q6HR PRN Nausea / Vomiting Pantoprazole Sodium 40 mg 10/07/24 07:00 10/08/24 05:56 Pantoprazole 40 Mg Tablet PO Not Given QDAC SHALINI Sodium Chloride 1 gm 10/06/24 23:00 10/08/24 14:28 Sodium Chloride 1 Gm Tablet PO Not Given QID SHALINI Sodium Chloride 10 ml 10/07/24 14:57 Sodium Chloride Flush 0.9% 10 Ml Syringe IVP PRN PRN NEEDED PER PROVIDER ORDERS Sodium Chloride 10 ml 10/07/24 17:00 10/08/24 08:42 Sodium Chloride Flush 0.9% 10 Ml Syringe IVP 10 ml 0100,0900,1700 SHALINI Administration
[2024-10-08] MEDS: GABAPENTIN 300 MG CAPSULE PO SCH (15:36)
--- NOTE | 2024-10-08 18:22 | PROVIDER PROGRESS NOTE ---
Assessment/Plan Problem List (1) Altered mental status: Qualifiers: Altered mental status type: delirium Qualified Code(s): R41.0 - Disorientation, unspecified Assessment/Plan: * Patient's mental status moderately improved overnight but continues to be disoriented to location, time, situation, and is not easily directable * Intermittently agitated and has required restraints over the past 24 hours * Underlying etiology is still unclear but differential continues to include sequelae of acute hyponatremia versus delayed alcohol withdrawal versus cancer related * MRI done today though with somewhat limited visualization, is sufficiently clear to confirm there is no metastatic lesion in the brain (I have personally discussed this film with radiologist) * Given patient's continued intermittent agitation and transient episodes of hypertension and tachycardia along with his alcohol history, I have added gabapentin for benzodiazepine free alcohol withdrawal treatment and attempted to observe for any signs of improvement to suggest the presence of alcohol withdrawal. I am hesitant to utilize benzodiazepines given his age as well as his soft blood pressures and I have discussed this with the family * Pending clinical course with improvement of mental status and response to medications, we have also discussed the possibility of a lumbar puncture that at this time I do not think is indicated given the lack of focal symptoms as well as the risk of lumbar puncture in an agitated patient but this can be considered pending the clinical course (2) Acute hyponatremia: Assessment/Plan: * Underlying etiology of hyponatremia includes possibility of alcohol-related versus SIADH in the setting of metastatic disease to the lungs * Has improved significantly overnight with sodium 131 at an appropriate rate of improvement * Continue to trend and continue NS maintenance fluids (3) Metastasis of unknown primary: Assessment/Plan: * Patient presented with CT scan findings suggestive of metastatic disease to the lungs without evidence of brain metastasis as per MRI done today * Primary still unknown although patient does have a known history of prostate cancer * Once patient is stabilized, the goal is to achieve mentation stability such that he can participate in goals of care conversation and if he so chooses to pursue further workup I would recommend thoracentesis to send pleural fluid for cytologyThough per family members, he may opt to seek hospice care based on his previous statements (4) Pleural effusion: Assessment/Plan: * As above, suspect malignancy however patient was started by [facility] on sepsis antibiotics including Levaquin, vancomycin and Flagyl * I do not have confirmed evidence of infection although he does have leukocytosis which could be secondary to malignancy versus agitation versus infection, for now, continue antibiotics and follow-up blood cultures (5) Acute urinary retention: Assessment/Plan: * Hx of Prostate CA and BPH * Cont Hernandez Current Meds Current Meds: Current Medications Generic Name Dose Route Start Last Admin Trade Name Freq PRN Reason Stop Dose Admin Acetaminophen 650 mg 10/07/24 15:03 Acetaminophen 325 Mg Tablet PO Q4HR PRN Pain 1 to 4, or Fever Hydrocodone Bitart/Acetaminophen 1 tab 10/07/24 15:03 Hydrocod/Acetam 5/325 Mg Tablet PO Q4HR PRN Pain 5 to 7 Enoxaparin Sodium 40 mg 10/07/24 09:00 10/08/24 08:54 Enoxaparin 40 Mg/0.4 Ml Syringe SUBQ Not Given DAILY SHALINI Gabapentin 300 mg 10/08/24 15:00 10/08/24 15:36 Gabapentin 300 Mg Capsule PO Not Given TID SHALINI Haloperidol 3 mg 10/08/24 11:29 10/08/24 11:53 Haloperidol 5 Mg/Ml Vial IVP 3 mg Q4H PRN Administration Agitation Sodium Chloride 1,000 mls @ 100 mls/hr 10/07/24 15:00 10/08/24 14:24 Normal Saline 0.9% IV 100 mls/hr .Q10H SHALINI Administration Vancomycin HCl 1.5 gm/ Sodium 500 mls @ 250 mls/hr 10/09/24 05:00 Chloride IV Q24H SHALINI Levofloxacin 750 mg in 150 mls @ 100 mls/hr 10/08/24 11:00 10/08/24 13:10 Levaquin 750 Mg/150 Ml IV Infused Q24H SHALINI Infusion Metronidazole 500 mg in 100 mls @ 100 mls/hr 10/08/24 14:00 10/08/24 15:37 Flagyl 500 Mg/100 Ml IV Infused Q8H SHALINI Infusion Mineral Oil 1 applic 10/07/24 15:30 10/07/24 20:30 Min Oil/Dimethicon/Coconut Oil 92 Gm Tube TOP 1 applic PRN PRN Administration Skin Care Ondansetron HCl 4 mg 10/07/24 15:03 Ondansetron 4 Mg/2 Ml Vial IVP Q6HR PRN Nausea / Vomiting Pantoprazole Sodium 40 mg 10/07/24 07:00 10/08/24 05:56 Pantoprazole 40 Mg Tablet PO Not Given QDAC SHALINI Sodium Chloride 1 gm 10/06/24 23:00 10/08/24 18:11 Sodium Chloride 1 Gm Tablet PO Not Given QID SHALINI Sodium Chloride 10 ml 10/07/24 14:57 Sodium Chloride Flush 0.9% 10 Ml Syringe IVP PRN PRN NEEDED PER PROVIDER ORDERS Sodium Chloride 10 ml 10/07/24 17:00 10/08/24 18:02 Sodium Chloride Flush 0.9% 10 Ml Syringe IVP Not Given 0100,0900,1700 [facility] Lab Result Lab results reviewed: Yes 10/07/24 07:08 10/08/24 08:14 EKG Results EKG Interpreted Independently: Yes Diagnostic Imaging Results Diagnostic Imaging Results: Final report reviewed and Discussed with radiologist Additional Planning Condition/Complexity: Guarded My Orders: My Active Orders 10/08/24 ADMIT [Admission Order] Routine 10/08/24 11:29 Haloperidol Inj [Haldol Inj] 3 mg IVP Q4H PRN 10/08/24 11:51 RN MRI Screening [RC] .ONCE 10/08/24 15:00 Gabapentin [Neurontin] 300 mg PO TID 10/08/24 15:42 NonViolent Restraints PROTOCOL Restraint(s) Assessment [RC] Q90M 10/09/24 05:00 AMMONIA [CHEM] DAILYLAB BMP - BASIC METABOLIC PANEL [CHEM] DAILYLAB CBC W/O DIFF (HEMOGRAM) [HEME] DAILYLAB 10/10/24 05:00 BMP - BASIC METABOLIC PANEL [CHEM] DAILYLAB CBC W/O DIFF (HEMOGRAM) [HEME] DAILYLAB 10/11/24 05:00 BMP - BASIC METABOLIC PANEL [CHEM] DAILYLAB CBC W/O DIFF (HEMOGRAM) [HEME] DAILYLAB Subjective Subjective Nursing Reports: Confused Objective Vital Signs: Vital Signs - 24 hr 10/07/24 21:00 10/08/24 00:00 10/08/24 00:30 Temperature 36.4 C L 36.5 C Temperature Source Temporal Artery Scan Temporal Artery Scan Pulse Rate [Brachial] 110 H Pulse Rate [Monitoring electrodes] 106 H Respiratory Rate 24 25 H Blood Pressure [Right Brachial artery] 105/65 163/84 H O2 Saturation 95 95 O2 Source Room air Room air Sedation scale 0-Fully awake 0-Fully awake Pain Intensity 0 Pain Intensity [Left Knee] 0 10/08/24 04:00 10/08/24 07:28 10/08/24 15:30 Temperature 36.5 C 36.5 C Temperature Source Temporal Artery Scan Temporal Artery Scan Pulse Rate [Brachial] 115 H Pulse Rate [Monitoring electrodes] 124 H Respiratory Rate 28 H 26 H Blood Pressure [Right Brachial artery] 105/59 L 120/65 O2 Saturation 94 95 O2 Source Room air Room air Sedation scale 0-Fully awake 1-Arouses easily Pain Intensity Pain Intensity [Left Knee] 0 Oxygen O2 Source Room air I&O (Last 24 Hrs): Intake and Output Totals x24h 10/06/24 10/07/24 10/08/24 23:59 23:59 23:59 Intake Total 300 / 300 200 / 200 2970 / 2970 Output Total 900 / 900 300 / 300 370 / 370 Balance -600 / -600 -100 / -100 2600 / 2600 General: Mild distress HEENT: Atraumatic Neuro: Disoriented and Non Focal Cardiovascular: Regular rate, Normal S1, Normal S2 and No murmurs Respiratory: Chest non-tender and No respiratory distress (mild tachypnea) Abdomen: Normal bowel sounds and No masses Results Results: Laboratory Results WBC 24.6 x10^3/uL (4.8-10.8) H 10/07/24 07:08 RBC 4.71 10^6/uL (4.70-6.10) 10/07/24 07:08 Hgb 14.8 g/dL (14.0-18.0) 10/07/24 07:08 Hct 41.8 % (42.0-52.0) L 10/07/24 07:08 MCV 88.7 fL (80.0-94.0) 10/07/24 07:08 MCH 31.4 pg (27.0-31.0) H 10/07/24 07:08 MCHC 35.4 g/dL (32.0-36.0) 10/07/24 07:08 RDW 13.0 % (12.0-15.0) 10/07/24 07:08 Plt Count 230 10^3/uL (130-450) 10/07/24 07:08 MPV 10.2 fL (7.4-11.4) 10/07/24 07:08 Neut # (Auto) 17.8 10^3/uL (1.5-6.6) H 10/07/24 07:08 Lymph # (Auto) 2.4 10^3/uL (1.5-3.5) 10/07/24 07:08 [place] # (Auto) 1.6 10^3/uL (0.0-1.0) H 10/07/24 07:08 Eos # (Auto) 2.3 10^3/uL (0.0-0.7) H 10/07/24 07:08 Baso # (Auto) 0.2 10^3/uL (0.0-0.1) H 10/07/24 07:08 Absolute Nucleated RBC 0.00 x10^3/uL 10/07/24 07:08 Nucleated RBC % 0.0 /100WBC 10/07/24 07:08 Manual Slide Review Indicated 10/07/24 07:08 WBC Morphology (NORMAL) 10/06/24 10:31 Platelet Estimate NORMAL (130-450,000) (NORMAL) 10/07/24 07:08 Platelet Morphology NORMAL APPEARANCE (NORMAL) 10/07/24 07:08 RBC Morph Micro Appear NORMAL APPEARANCE (NORMAL) 10/07/24 07:08 Sodium 132 mmol/L (135-145) L 10/08/24 08:14 Potassium 3.8 mmol/L (3.5-4.5) 10/08/24 08:14 Chloride 103 mmol/L (101-111) 10/08/24 08:14 Carbon Dioxide 20 mmol/L (21-32) L 10/08/24 08:14 Anion Gap 9.0 (6-13) 10/08/24 08:14 BUN 32 mg/dL (6-20) H 10/08/24 08:14 Creatinine 1.3 mg/dL (0.6-1.3) 10/08/24 08:14 Estimated GFR (MDRD) 52 (>89) L 10/08/24 08:14 Glucose 121 mg/dL (74-104) H 10/08/24 08:14 Calcium 9.3 mg/dL (8.5-10.3) 10/08/24 08:14 Total Bilirubin 0.7 mg/dL (0.2-1.0) 10/06/24 10:31 AST 19 IU/L (10-42) 10/06/24 10:31 ALT 30 IU/L (10-60) 10/06/24 10:31 Alkaline Phosphatase 107 IU/L (42-121) 10/06/24 10:31 Total Protein 6.3 g/dL (6.4-8.9) L 10/06/24 10:31 Albumin 3.8 g/dL (3.2-5.5) 10/06/24 10:31 Globulin 2.5 g/dL (2.1-4.2) 10/06/24 10:31 Albumin/Globulin Ratio 1.5 (1.0-2.2) 10/06/24 10:31 Lipase 15 U/L (11-82) 10/06/24 10:31 Procalcitonin Immunoas 0.54 ng/mL (<0.5) H 10/08/24 08:14 Urine Color YELLOW 10/06/24 13:05 Urine Clarity CLEAR (CLEAR) 10/06/24 13:05 Urine pH 6.0 PH (5.0-7.5) 10/06/24 13:05 Ur Specific [place] 1.020 (1.002-1.030) 10/06/24 13:05 Urine Protein TRACE mg/dL (NEGATIVE) 10/06/24 13:05 Urine Glucose (UA) NEGATIVE mg/dL (NEGATIVE) 10/06/24 13:05 Urine Ketones NEGATIVE mg/dL (NEGATIVE) 10/06/24 13:05 Urine Occult Blood TRACE-LYSE (NEGATIVE) 10/06/24 13:05 Urine Nitrite NEGATIVE (NEGATIVE) 10/06/24 13:05 Urine Bilirubin NEGATIVE (NEGATIVE) 10/06/24 13:05 Urine Urobilinogen 0.2 (NORMAL) E.U./dL (NORMAL) 10/06/24 13:05 Ur Leukocyte Esterase NEGATIVE (NEGATIVE) 10/06/24 13:05 Ur Microscopic Review NOT INDICATED 10/06/24 13:05 Urine Culture Comments NOT INDICATED 10/06/24 13:05 Urine Osmolality 506 mOsmol/kg (.) 10/06/24 13:05 Urine Sodium 31.4 mmol/L 10/06/24 13:05 Procedures Procedures: Procedures EXC LES SOFT TISSUE NEC (04/19/15) OTH ARTHROTOMY-KNEE (04/06/15) OTHER SKIN & SUBQ I D (03/28/15) ABX Reporting Has patient been on IV antibiotics over the past 48 hours?: Yes Current Medications Current Medications Current Medications: Current Medications Generic Name Dose Route Start Last Admin Trade Name Freq PRN Reason Stop Dose Admin Acetaminophen 650 mg 10/07/24 15:03 Acetaminophen 325 Mg Tablet PO Q4HR PRN Pain 1 to 4, or Fever Hydrocodone Bitart/Acetaminophen 1 tab 10/07/24 15:03 Hydrocod/Acetam 5/325 Mg Tablet PO Q4HR PRN Pain 5 to 7 Enoxaparin Sodium 40 mg 10/07/24 09:00 10/08/24 08:54 Enoxaparin 40 Mg/0.4 Ml Syringe SUBQ Not Given DAILY SHALINI Gabapentin 300 mg 10/08/24 15:00 10/08/24 15:36 Gabapentin 300 Mg Capsule PO Not Given TID SHALINI Haloperidol 3 mg 10/08/24 11:29 10/08/24 11:53 Haloperidol 5 Mg/Ml Vial IVP 3 mg Q4H PRN Administration Agitation Sodium Chloride 1,000 mls @ 100 mls/hr 10/07/24 15:00 10/08/24 14:24 Normal Saline 0.9% IV 100 mls/hr .Q10H SHALINI Administration Vancomycin HCl 1.5 gm/ Sodium 500 mls @ 250 mls/hr 10/09/24 05:00 Chloride IV Q24H SHALINI Levofloxacin 750 mg in 150 mls @ 100 mls/hr 10/08/24 11:00 10/08/24 13:10 Levaquin 750 Mg/150 Ml IV Infused Q24H SHALINI Infusion Metronidazole 500 mg in 100 mls @ 100 mls/hr 10/08/24 14:00 10/08/24 15:37 Flagyl 500 Mg/100 Ml IV Infused Q8H SHALINI Infusion Mineral Oil 1 applic 10/07/24 15:30 10/07/24 20:30 Min Oil/Dimethicon/Coconut Oil 92 Gm Tube TOP 1 applic PRN PRN Administration Skin Care Ondansetron HCl 4 mg 10/07/24 15:03 Ondansetron 4 Mg/2 Ml Vial IVP Q6HR PRN Nausea / Vomiting Pantoprazole Sodium 40 mg 10/07/24 07:00 10/08/24 05:56 Pantoprazole 40 Mg Tablet PO Not Given QDAC SHALINI Sodium Chloride 1 gm 10/06/24 23:00 10/08/24 18:11 Sodium Chloride 1 Gm Tablet PO Not Given QID SHALINI Sodium Chloride 10 ml 10/07/24 14:57 Sodium Chloride Flush 0.9% 10 Ml Syringe IVP PRN PRN NEEDED PER PROVIDER ORDERS Sodium Chloride 10 ml 10/07/24 17:00 10/08/24 18:02 Sodium Chloride Flush 0.9% 10 Ml Syringe IVP Not Given 0100,0900,1700 SHALINI
--- NOTE | 2024-10-08 20:51 | PROVIDER PROGRESS NOTE ---
Progress Note Progress Note Progress Note: Called by RN for tachycardia greater than 120 sustained for quite a period of time. Has shown intermittent periods of up to 150. Does not have any history of atrial fibrillation. Patient is also tachypneic. Respiratory rate in the mid to high 20s. He has not had any hypoxia he remains with normal saturations on room air. He is not particularly agitated. He is laying quietly in the bed with bilateral wrist restraints in place. He denies any symptoms. He does not feel short of breath he does not think that he is having any difficulty breathing. On auscultation his lungs are clear. He is using his abdominal muscles to breathe. His abdomen is soft and nondistended. He does not have any peripheral edema. Telemetry monitoring shows sinus tachycardia. Strips reviewed. Differential diagnosis is pneumonia, for which she is being treated, atrial fibrillation with RVR. Anxiety/withdrawal syndrome, pulmonary embolus. Patient does not have increasing oxygen requirements and therefore I doubt this is a pulmonary embolus or worsening of his pneumonia. It is certainly possible this is anxiety/withdrawal syndrome. I have requested an EKG to rule out A-fib. I will give patient metoprolol to calm his heart rate. We have been avoiding Ativan in this geriatric patient; we are treating his agitation and possible withdrawal syndrome with Haldol, and gabapentin.
[2024-10-08] MEDS: METOPROLOL 5 MG/5 ML VIAL IVP PRN (21:10)
[2024-10-08] MEDS: diltiaZEM INJ 5 MG/ML VIAL IVP ONE (23:07)
--- NOTE | 2024-10-09 00:51 | XRAY Report ---
PROCEDURE: XR Chest 1V INDICATIONS: tachypnea TECHNIQUE: One view of the chest was acquired. COMPARISON: CT chest without contrast 10/06/2024 FINDINGS: Surgical changes and devices: None. Lungs and pleura: Moderate right pleural effusion. No left pleural effusion. No pneumothorax. Right lower lobe consolidation. Mediastinum: Aortic arch calcifications. Mediastinal contours appear normal. Heart size is normal. Bones and chest wall: No suspicious bony lesions. Overlying soft tissues appear unremarkable. IMPRESSION: Moderate right pleural effusion with a right lower lobe consolidation. Reviewed by: Jose Hu MD on 10/09/2024 12:49 AM PST Approved by: Jose Hu MD on 10/09/2024 12:49 AM PST Station ID: [id number]
[2024-10-09 05:09] LABS: ADENOVIRUS F 40/41 Not Detected (Not Detected); ASTROVIRUS Not Detected (Not Detected); C DIFFICILE TOXIN A/B Not Detected (Not Detected); CAMPYLOBACTER Not Detected (Not Detected); CRYPTOSPORIDIUM Not Detected (Not Detected); CYCLOSPORA CAYETANENSIS Not Detected (Not Detected); ENTAMOEBA HISTOLYTICA Not Detected (Not Detected); ENTEROAGGREGATIVE E COLI Not Detected (Not Detected); ENTEROPATHOGENIC E COLI Not Detected (Not Detected); ENTEROTOXIGENIC E COLI Not Detected (Not Detected); GIARDIA LAMBLIA Not Detected (Not Detected); NOROVIRUS GI/GII Not Detected (Not Detected); PLESIOMONAS SHIGELLOIDES Not Detected (Not Detected); ROTAVIRUS A Not Detected (Not Detected); SALMONELLA Not Detected (Not Detected); SAPOVIRUS Not Detected (Not Detected); SHIGA-TOXIN-PRODUCING E COLI Not Detected (Not Detected); SHIGELLA/ENTEROINVASIVE E COLI Not Detected (Not Detected); VIBRIO Not Detected (Not Detected); VIBRIO CHOLERAE Not Detected (Not Detected); YERSINIA ENTEROCOLITICA Not Detected (Not Detected)
[2024-10-09 05:38] LABS: HCT - HEMATOCRIT 42.9 % (42.0-52.0); HGB - HEMOGLOBIN 14.5 g/dL (14.0-18.0); MEAN CORPUSCULAR HEMOGLOBIN 30.3 pg (27.0-31.0); MEAN CORPUSCULAR HGB CONC 33.8 g/dL (32.0-36.0); MEAN CORPUSCULAR VOLUME 89.6 fL (80.0-94.0); MEAN PLATELET VOLUME 10.1 fL (7.4-11.4); RED BLOOD COUNT 4.79 10^6/uL (4.70-6.10); RED CELL DISTRIBUTION WIDTH 13.8 % (12.0-15.0)
[2024-10-09 05:52] LABS: CALCIUM 9.3 mg/dL (8.5-10.3); CREATININE 1.7 mg/dL (0.6-1.3); POTASSIUM 4.4 mmol/L (3.5-4.5)
[2024-10-09] MEDS: VANCOMYCIN INJ 1.5 GM in SODIUM CHLORIDE 0.9% 500 ML IV SCH (06:04)
[2024-10-09 06:05] LABS: WHITE BLOOD COUNT 37.3 x10^3/uL (4.8-10.8)
--- NOTE | 2024-10-09 10:13 | PROVIDER PROGRESS NOTE ---
Subjective Prog Note Date Prog Note Date: 10/09/24 Prog Note Time: 10:10 Subjective Pt reports feeling: No change Subjective: Patient is disoriented, and obviously tachypneic, but he denies any pain and does not appear to be wincing or making other objective evidence of pain Current Medications Current Medications Current Medications: Current Medications Generic Name Dose Route Start Last Admin Trade Name Freq PRN Reason Stop Dose Admin Acetaminophen 650 mg 10/07/24 15:03 Acetaminophen 325 Mg Tablet PO Q4HR PRN Pain 1 to 4, or Fever Hydrocodone Bitart/Acetaminophen 1 tab 10/07/24 15:03 Hydrocod/Acetam 5/325 Mg Tablet PO Q4HR PRN Pain 5 to 7 Enoxaparin Sodium 40 mg 10/07/24 09:00 10/09/24 08:35 Enoxaparin 40 Mg/0.4 Ml Syringe SUBQ 40 mg DAILY SHALINI Administration Gabapentin 300 mg 10/08/24 15:00 10/09/24 06:04 Gabapentin 300 Mg Capsule PO Not Given TID SHALINI Haloperidol 3 mg 10/08/24 11:29 10/09/24 09:59 Haloperidol 5 Mg/Ml Vial IVP 3 mg Q4H PRN Administration Agitation Sodium Chloride 1,000 mls @ 125 mls/hr 10/07/24 15:00 10/09/24 01:12 Normal Saline 0.9% IV 125 mls/hr .Q8H SHALINI Administration Vancomycin HCl 1.5 gm/ Sodium 500 mls @ 250 mls/hr 10/09/24 05:00 10/09/24 06:04 Chloride IV 250 mls/hr Q24H SHALINI Administration Levofloxacin 750 mg in 150 mls @ 100 mls/hr 10/08/24 11:00 10/08/24 13:10 Levaquin 750 Mg/150 Ml IV Infused Q24H SHALINI Infusion Metronidazole 500 mg in 100 mls @ 100 mls/hr 10/08/24 14:00 10/09/24 05:50 Flagyl 500 Mg/100 Ml IV 100 mls/hr Q8H SHALINI Administration Metoprolol Tartrate 5 mg 10/08/24 20:45 10/09/24 06:31 Metoprolol 5 Mg/5 Ml Vial IVP 5 mg Q4H PRN Administration Tachycardia Mineral Oil 1 applic 10/07/24 15:30 10/09/24 01:13 Min Oil/Dimethicon/Coconut Oil 92 Gm Tube TOP 1 applic PRN PRN Administration Skin Care Ondansetron HCl 4 mg 10/07/24 15:03 Ondansetron 4 Mg/2 Ml Vial IVP Q6HR PRN Nausea / Vomiting Pantoprazole Sodium 40 mg 10/07/24 07:00 10/09/24 06:04 Pantoprazole 40 Mg Tablet PO Not Given QDAC SHALINI Sodium Chloride 1 gm 10/06/24 23:00 10/09/24 08:36 Sodium Chloride 1 Gm Tablet PO 1 gm QID SHALINI Administration Sodium Chloride 10 ml 10/07/24 14:57 Sodium Chloride Flush 0.9% 10 Ml Syringe IVP PRN PRN NEEDED PER PROVIDER ORDERS Sodium Chloride 10 ml 10/07/24 17:00 10/09/24 08:36 Sodium Chloride Flush 0.9% 10 Ml Syringe IVP Not Given 0100,0900,1700 SHALINI Zinc Oxide 113 gm 10/09/24 10:01 Cod Liver Oil/Zinc Oxide 113 Gm Tube TOP PRN PRN Skin Care Objective Vital Signs/Intake & Output Reviewed Vital Signs: Yes Vital Signs: Vital Signs x48h Temp Pulse Pulse Pulse Resp BP BP 10/09/24 07:55 36.6 C 110 H 32 H 141/87 H 10/09/24 07:00 105 H 10/09/24 06:31 128 H 132/63 H 10/09/24 06:00 36.6 C 118 H 28 H 127/68 Pulse Ox O2 Flow Rate 10/09/24 07:55 96 2 10/09/24 07:00 10/09/24 06:31 10/09/24 06:00 94 Intake & Output: Intake & Output 10/06/24 10/07/24 10/08/24 10/09/24 23:59 23:59 23:59 23:59 Intake Total 300 / 300 200 / 200 4120 / 4120 0 / 0 Output Total 900 / 900 300 / 300 470 / 470 100 / 100 Balance -600 / -600 -100 / -100 3650 / 3650 -100 / -100 Weight (kg) 108.862 kg 102.5 kg Objective General Appearance: positive Other (Disoriented, tachypneic, but appears comfortable and denies any complaints, Does not appear to be in any pain) Respiratory: positive Other (Increased respiratory rate, mouth breathing, no wheezes or rales) Cardiovascular: positive Tachycardia Abdomen: positive Non-tender Skin: positive No rash and Warm Extremities: positive Nml appearance Neurologic/Psychiatric: positive Disoriented to place and Disoriented to time (Disoriented to situation) Lab Results 10/09/24 05:27 10/09/24 05:27 Other Labs: Lab Results x24hrs 10/09/24 10/07/24 Range/Units 05:27 13:00 WBC 37.3 H* (4.8-10.8) x10^3/uL RBC 4.79 (4.70-6.10) 10^6/uL Hgb 14.5 (14.0-18.0) g/dL Hct 42.9 (42.0-52.0) % MCV 89.6 (80.0-94.0) fL MCH 30.3 (27.0-31.0) pg MCHC 33.8 (32.0-36.0) g/dL RDW 13.8 (12.0-15.0) % Plt Count 281 (130-450) 10^3/uL MPV 10.1 (7.4-11.4) fL Sodium 134 L (135-145) mmol/L Potassium 4.4 (3.5-4.5) mmol/L Chloride 107 (101-111) mmol/L Carbon Dioxide 16 L (21-32) mmol/L Anion Gap 11.0 (6-13) BUN 40 H (6-20) mg/dL Creatinine 1.7 H (0.6-1.3) mg/dL Estimated GFR (MDRD) 38 L (>89) Glucose 142 H (74-104) mg/dL Calcium 9.3 (8.5-10.3) mg/dL Ammonia 20.8 (18-72) umol/L Stl C. cayetanensis PCR Not Detected (Not Detected) Stool Rotavirus A PCR Not Detected (Not Detected) Stl Adenov F 40/41 PCR Not Detected (Not Detected) Stool Astrovirus (PCR) Not Detected (Not Detected) Stool Campylobacter PCR Not Detected (Not Detected) Stl C. diff Tox A/B PCR Not Detected (Not Detected) Stool Cryptosporidium PCR Not Detected (Not Detected) Stl Sh Tox Pr E STEC PCR Not Detected (Not Detected) Stool E coli O157 PCR Not applicable (Not Detected) Stl Enterotoxigenic E PCR Not Detected (Not Detected) Stool EPEC (PCR) Not Detected (Not Detected) Stl E. histolytica PCR Not Detected (Not Detected) Stool Giardia Lamblia PCR Not Detected (Not Detected) Stl P. shigelloides PCR Not Detected (Not Detected) Stool Salmonella PCR Not Detected (Not Detected) Stool Sapovirus (PCR) Not Detected (Not Detected) Stl Shigella/EIEC PCR Not Detected (Not Detected) St Y.enterocolitica PCR Not Detected (Not Detected) Stool Vibrio (PCR) Not Detected (Not Detected) Stl Vibrio cholerae PCR Not Detected (Not Detected) Stl Enteroaggr Ecoli PCR Not Detected (Not Detected) Stl Norovirus GI/GII PCR Not Detected (Not Detected) Diagnostic Imaging Diagnostic Imaging Results: positive Final report reviewed ABX Reporting Has patient been on IV antibiotics over the past 48 hours?: Yes Sepsis Event Note (H) Evaluation Possible source of Sepsis: positive Unknown Sepsis Criteria Sepsis Criteria: Suspected or Documented, WBC count greater than 10% bands and WBC count greater than 12,000 or less than 4000 Assessment/Plan Problem List (1) Pleural effusion: Impression: * Patient developed respiratory distress overnight, currently the respirations in the 20s to 30s requiring supplemental oxygen by nasal cannula * Right-sided pleural effusion with a right lower lobe consolidation * I have reviewed the initial CT scan from 10/06 which was read as a multiloculated pleural effusion and although I agree there are lower lung loculations the upper portion does appear to be partially amenable to aspiration and drainage * Given that his respiratory condition has deteriorated, while his agitation and behavior has become better managed, I do think that this time he would benefit from a thoracentesis for both therapeutic as well as diagnostic benefit * I have discussed this with the family and they have agreed that they would like to pursue this treatment which would require transfer and at this time I have initiated a transfer request at [facility] where he has preliminarily been accepted by Dr. Brizuela of cardiac surgery and we await consultation from the hospitalist service to confirm acceptance for transfer (2) Altered mental status: Impression: * Underlying etiology unknown but differential includes sequela of hyponatremia, delayed EtOH withdrawal, malignancy, sepsis, respiratory failure * At this point we will continue treatment of the underlying conditions * Hyponatremia nearly resolved with Na at 134, improved from 120 on 10/06 - he has not exceed 10 mmol/L of correction in any 24 hr period) Qualifiers: Altered mental status type: delirium Qualified Code(s): R41.0 - Disorientation, unspecified (3) Acute hyponatremia: Impression: * Improved, Na 124 * Etiology SIADH vs EtoH abuse vs malignancy (4) Metastasis of unknown primary: Impression: * Currently working on transfer to [facility] for thoracentesis, will recommend cytology and probable inpt heme/onc consult (5) Acute urinary retention: Impression: * Cont indwelling arredondo
[2024-10-09] MEDS: COD LIVER OIL/ZINC OXIDE 113 GM TUBE TOP PRN (17:09)
--- NOTE | 2024-10-09 18:32 | Discharge Summary ---
Discharge Summary Admit Date: 10/07/24 Discharge Date: 10/09/24 Discharging Provider: Dr Niranjan Ramos Primary Care Provider: Janay Mitchell Code Status: Attempt Resuscitation Discharge Facility Name: [facility] DIAGNOSES Admission Diagnoses: * Altered mental status * Acute hyponatremia * Metastasis of unknown primary Discharge Diagnoses with Status of Each Condition: * Acute respiratory failure with hypoxia - Gaurded * Right-sided pleural effusion - Gaurded * Metastasis of unknown primary - Stable * Altered mental status - Improved HPI History of Present Illness: Patient is an 89 year old man with hx of GERD, prostate cancer, DMT2, HTN, gout that presents for altered mental status. His son is the primary historian due to patient altered mental status. Five days ago mentation changed, patient appeared more anxious, stopped normal activities, paced around house. 3 days ago patient had evident sharp decrease in mentation. Associated symptoms include nausea, headache, confusion, productive cough. At baseline, patient has no mental or mobility deficits and is independent. Denies change in gait, muscle weakness, fatigue, falls. Patient has at least 40 pack year history, has two drinks of hard liquor daily. Patient admitted to ER yesterday. Head CT completed and was negative for acute process. Sodium was 120 on admission, Patient was given a total of 3 boluses of 100 mL 3% hypertonic normal saline, sodium improved to 127. Patient combative in ER, was given olanzapine and put in soft restraints. Chest CT performed due to patient productive cough, indicated lesions highly suspicious of cancer with potential lymph node involvement and pleural effusion. CT A&P negative. Hernandez placed by urologist in ER due to reported acute urinary retention. ER also discussed patient with oncologist Dr. Lucas, who recommended magnus and MRI and IR guided lung lesion biopsy. HOSPITAL COURSE Hospital Course: Patient presented to the ED on 10/06/2024 brought in due to family noticing acute change in mental status over period of 3 days prior to admission, significantly worsening on the day before admission. ED workup was remarkable for finding of hyponatremia with a sodium of 120. Additional workup included CT scan of the chest showing multiloculated pleural effusion in the right lung as well as lymph nodes concerning for metastatic disease of unknown primary. Head CT on admission was unremarkable. The information regarding the concern for malignancy was presented to the family. Given his advanced age, and the findings concerning for diffuse metastatic disease, the options regarding possible cancer diagnosis and treatment were reviewed with the family as well as options for palliative care or hospice. The family decided that they would like to attempt to correct the hyponatremia and improve his mental status so that he may become alert enough to participate in goals of care conversations to decide what he would like to do with respect to cancer treatment. Given that the patient had severe hyponatremia with altered mental status, he was categorized as a potential ICU admission. On 10/06/2024 there were no ICU beds available at this facility and therefore he was not excepted for admission. Attempts were made by the ED staff to transfer the patient to an accepting facility. In the interim, the patient remained boarded in the emergency department and his hyponatremia was addressed with boluses of hypertonic saline. His sodium gradually improved by the next day when no accepting facility was found, another attempt was made for admission to the hospital at which point he was accepted to a telemetry bed. While during the course of the ED overnight he became quite agitated, and intermittently aggressive requiring sedation and wrist restraints. After admission within the first 24 to 48 hours his mentation gradually improved as did his sodium level. Given the findings of metastatic disease on the chest CT there was suspicion that he may have metastatic lesions to the brain. Because of the initial agitation and behavior concerns, the MRI it was initially not feasible however after improvement in his mentation it was performed on 10/08/2024 and the results showed no evidence of metastatic disease. On admission the patient had a leukocytosis with WBC of 26 however he did not have any other focal evidence of infection. Empiric antibiotics were withheld to evaluate the further clinical course given that he had no fever, and there was concern for either malignancy or stress reaction as the etiology of the leukocytosis. However in the evening, the patient triggered a sepsis alert prompting a cross covering industrial coffee grinder to start the patient on empiric sepsis protocol with Vancomycin, Flagyl, and Levaquin. The next day his WBCs increased to 37 despite starting broad-spectrum antibiotics. To this point he has still not had any fevers during this admission. Of note the patient reportedly does have significant alcohol use history and per the family his last alcoholic beverage.Would have likely been to 10/03/24 but they were unsure. Per the patient's family, he has been able to abruptly cease alcohol without any history of alcohol withdrawal. Furthermore, because of the lack of clarity on his last alcoholic beverage as well as initial hypotension, benzodiazepine withdrawal protocol was avoided. He was however started on gabapentin p.o. as an alternate alcohol withdrawal protocol and this seems to be moderately effective at least to the extent that he was able to tolerate the MRI. Reason for transfer The patient initially did not present with any respiratory compromise or hypoxia. However in the evening of10/08/2024 the patient began to develop respiratory distress and hypoxia. A chest x-ray was performed in the morning of which demonstrated a moderate pleural effusion of the right lung as per radiology report.When the CT images were reviewed a large pleural effusion could be appreciated in the right lung and although there were areas of loculation, a large pocket amenable to thoracentesis was observed. Given his altered mental status with unknown etiology and is now declining respiratory status it was felt that the patient would benefit from a therapeutic and diagnostic thoracentesis. At the time of discharge No interventional radiologist or other documentation consultant capable of performing a thoracentesis Was available at our facility prompting the need for transfer to higher level of care.Additionally, he may also benefit from an oncology consultation either now or when and if cytology confirms malignancy. Of note, in the hour prior to transfer the patient appeared to have had a aspiration event and his diet was then restricted. Recommendations would be for a speech therapy evaluation at the excepting facility prior to resuming diet. ALLERGIES Allergies Allergy/AdvReac Type Severity Reaction Status Date / Time penicillin * (penicillin) AdvReac Severe Anaphylaxis Verified 10/06/24 10:15 naproxen sodium * (From AdvReac Intermediate Unknown Verified 10/06/24 10:15 Aleve) MEDICATIONS Ambulatory Orders Medication Instructions Recorded Confirmed allopurinol 100 mg tablet 200 mg PO DAILY 03/11/15 10/07/24 atenolol 100 mg tablet 100 mg PO DAILY 03/11/15 10/07/24 atorvastatin 20 mg tablet 20 mg PO DAILY 03/11/15 10/07/24 cholecalciferol (vitamin D3) 50 2,000 units PO BID 03/11/15 10/07/24 mcg (2,000 unit) capsule (Vitamin D3) multivitamin 1 tab PO DAILY 03/11/15 10/07/24 amlodipine 10 mg tablet 10 mg PO DAILY 10/07/24 10/07/24 pantoprazole 40 mg tablet,delayed 40 mg PO DAILY 10/07/24 10/07/24 release triamterene 37.5 1 tab PO DAILY 10/07/24 10/07/24 mg-hydrochlorothiazide 25 mg tablet PHYSICAL EXAM AT DISCHARGE General Appearance: positive Moderate distress, Lethargic and Other (Disoriented) Respiratory: positive Wheezes and Other (Mild respiratory distress) Cardiovascular: positive Tachycardia Abdomen: positive Non-tender, No organomegaly, Nml bowel sounds and No distention Skin: positive Color nml and No rash Extremities: positive Non-tender, Nml appearance and No pedal edema Neurologic/Psychiatric: positive Motor nml, Disoriented to place and Disoriented to time LABS 10/09/24 05:27 10/09/24 05:27 DIAGNOSTIC IMAGING Diagnostic Imaging Results: Final report reviewed SEPSIS Possible source of Sepsis: Unknown Sepsis Criteria: Suspected or Documented, WBC count greater than 10% bands and WBC count greater than 12,000 or less than 4000 TIME SPENT Time Spent in Discharge (Minutes): 120 Discharge Plan Discharge Patient Disposition: Transfer Acute Care Hosp Condition: Fair Prescriptions: Continued atorvastatin 20 MG tablet 20 mg PO DAILY atenolol 100 MG tablet 100 mg PO DAILY allopurinol 100 MG tablet 200 mg PO DAILY multivitamin 1 EACH capsule 1 tab PO DAILY cholecalciferol (vitamin D3) [Vitamin D3] 2,000 UNIT capsule 2,000 units PO BID amlodipine 10 mg tablet 10 mg PO DAILY pantoprazole 40 mg tablet,delayed release (DR/EC) 40 mg PO DAILY triamterene-hydrochlorothiazid 37.5-25 mg tablet 1 tab PO DAILY Print Language: Greek Stand Alone Forms: PCP List Follow-up Care: Janay Mitchell ARNP [Primary Care Provider] -
[2024-10-09 19:45] VITALS: BP 135/80; TEMP 97.7; O2SAT 94
== END 2024-10-09 20:20 | disposition short-term general hospital (02) | DRG 871 ==
LOC: MS3 09:44 → ED 09:44 → MS3 10-07 10:56 → MS2 10-07 15:23
PROVIDERS: ADMIT Family Medicine Sports Medicine; ATTEND Family Medicine Sports Medicine
DX: E66.9 Obesity, unspecified; C80.1 Malignant (primary) neoplasm, unspecified; R11.2 Nausea with vomiting, unspecified; E87.1 Hypo-osmolality and hyponatremia; Z78.1 Physical restraint status; K21.9 Gastro-esophageal reflux disease without esophagitis; R33.9 Retention of urine, unspecified; R05.9 Cough, unspecified; C61 Malignant neoplasm of prostate; Z63.4 Disappearance and death of family member; I95.9 Hypotension, unspecified; Z87.891 Personal history of nicotine dependence; C78.02 Secondary malignant neoplasm of left lung; E11.9 Type 2 diabetes mellitus without complications; J96.01 Acute respiratory failure with hypoxia; I10 Essential (primary) hypertension; A41.9 Sepsis, unspecified organism; C78.01 Secondary malignant neoplasm of right lung; J90 Pleural effusion, not elsewhere classified; Z68.31 Body mass index [BMI] 31.0-31.9, adult; D72.829 Elevated white blood cell count, unspecified; R41.82 Altered mental status, unspecified